=== PATIENT | female | born 1960 | race Caucasian/White ===

== ENCOUNTER → 2016-06-29 | Outpatient (CLI) | payer MEDICARE, OTHER ==
[2016-06-29 11:08] VITALS: BP 165/100; PULSE 120; RESP 15; TEMP 98; BMI 38.2
[2016-06-29 12:57] LABS: CH 28.3; CHCM 32.9; HCT 48.3 % (34.0-46.0); HDW 2.64; HGB 15.7 gm/dL (11.4-16.0); MCH 28.2 pg (25.0-35.0); MCHC 32.6 g/dL (31.0-37.0); MCV 86.4 fL (80.0-100.0); Mean Platelet Volume 7.7; RBC 5.59 m/uL (3.80-5.40); RDW 13.8 % (11.5-15.5)
[2016-06-29 13:06] LABS: INR 1.1 (<1.1); Partial Thromboplastin Time 27.1 sec (22.0-30.0); Prothrombin Time 11.2 sec (9.0-12.0)
[2016-06-29 13:23] LABS: ALT 38 U/L (9-52); AST 15 U/L (14-36); Alkaline Phosphatase 84 U/L (38-126); Anion Gap 11 mmol/L; Blood Urea Nitrogen 7 mg/dL (7-17); Calcium 9.3 mg/dL (8.4-10.2); Carbon Dioxide 30 mmol/L (22-30); Chloride 99 mmol/L (98-107); Cholesterol 102 mg/dL (<200); Glucose 211 mg/dL (74-99); HDL Cholesterol 32 mg/dL (40-60); Iron 43 ug/dL (37-170); Magnesium 1.9 mg/dL (1.6-2.3); Non-African American GFR(MDRD) >60 (>60 ml/min/1.73 sqM); Phosphorous 3.9 mg/dL (2.5-4.5); Sodium 140 mmol/L (137-145); Total Bilirubin 0.6 mg/dL (0.2-1.3); Total Protein 6.9 g/dL (6.3-8.2); Triglycerides 152 mg/dL (<150)
[2016-06-29 13:32] LABS: % Iron Saturation 13.4 % (20-50); Prealbumin 18 mg/dL (18-36); Total Iron Binding Capacity 322 ug/dL (265-497)
[2016-06-29 13:36] LABS: Hemoglobin A1C 9.3 % (4.2-6.1)
[2016-06-29 14:27] LABS: Vitamin B12 945 pg/mL (239-931)
[2016-07-04 16:40] LABS: Selenium 132 mcg/L (63-160)
--- NOTE | 2016-08-17 13:56 | P.PN ---
Progress Note - Text DATE OF SERVICE: 06/29/2016 CHIEF COMPLAINT: Followup sleeve gastrectomy. HISTORY OF PRESENT ILLNESS: Gabbi Pérez is a 56-year-old female status post sleeve gastrectomy over 2 + years ago. She is now tachycardic and has been placed on a pacemaker. Her daughter reports that she has been having vomiting including belly pain. No reports of constipation. She complains of a fair amount of heartburn. Now presents for further evaluation and management. At her height of 6 feet, her ideal body weight is 183 pounds. Her highest weight is 319 pounds. Today she comes weighing 281 pounds. She has only been able to maintain a 30 pound weight loss. Percentage of weight loss is 28%. Body mass index is reduced from 43.3 down to 38.2. She is still 90 pounds overweight. She is now back on medications for diabetes. She has not been able to follow the bariatric plan given her multiple comorbidities. PAST MEDICAL HISTORY: 1. Type 2 diabetes mellitus. 2. Bipolar disorder. 3. Gastric ulcers. 4. Colon polyps. 5. Depression D deficiency. 6. ADHD. 7. Morbid obesity. 8. Stroke, with left hemiparesis. 9. Coronary artery disease. 10. Ocular degeneration. 11. Vitamin D deficiency. 12. Anxiety. 13. Bladder urgency. 14. Personal history of stroke 15. History of heart attack. PAST SURGICAL HISTORY: 1. Sleeve gastrectomy. 2. Upper endoscopy. 3. Colonoscopy. 4. Ventral hernia repair. 5. . 6. Pacemaker placement. MEDICATIONS: 1. Lamictal. 2. Ditropan. 3. Nystatin. 4. Multivitamin. 5. Provigil. 6. Methotrexate. 7. Prinivil. 8. NovoLog insulin. 9. Levemir. 10. Folic acid. 11. Flonase. 12. Florinef. 13. Cymbalta. 14. Plavix. 15. Vitamin D. 16. Lipitor. 17. Eliquis. 18. Ventolin inhaler. 19. Abilify. 20. Xanax. ALLERGIES: 1. ADHESIVE TAPE. 2. ASPIRIN. 3. INVEGA. 4. SULFA. 5. GEODON. SOCIAL HISTORY: Active additional marijuana use. No reports of active alcohol abuse. FAMILY HISTORY: Pertinent for morbid obesity including cervical cancer and genitourinary cancer. REVIEW OF SYSTEMS: CONSTITUTIONAL: [place] body weight of 183 pounds. She has gained 11 pounds since her last evaluation a year ago. Maintained weight loss of only 38 pounds. Percent excess weight loss of 28% beyond almost 3 years. Body mass index reduced from 43.3 down to 38.2. Highest weight of 319 pounds. GASTROINTESTINAL: As above, heartburn. Also reports abdominal pain. HEENT: Has troubles with vision with ocular degeneration. Denies any dysphagia. Denies any troubles with hearing. ENDOCRINE: She has insulin-dependent diabetes; however, moderately improved since her sleeve gastrectomy. No history of thyroid disorder. RESPIRATORY: She reports increased daytime somnolence and is currently undergoing re-evaluation for obstructive sleep apnea. CARDIOVASCULAR: History of hyperlipidemia. History of chest pain with heart attack. NEURO: History of stroke including fibromyalgia and headaches. PSYCH: History of depression including mood disorders and ADHD. MUSCULOSKELETAL: Has osteoarthritis of the lower back or hips. PHYSICAL EXAM: VITAL SIGNS: 98.0, 120, 15, 165/100. ABDOMEN: Tenderness in the epigastrium. No peritoneal signs. GENERAL: Well-developed, pleasant female in no acute distress. HEENT: She wears dark glasses. No troubles with hearing. No nasal drainage. NECK: Supple without lymphadenopathy. CHEST: Unlabored respirations. Equal bilateral excursions. CARDIOVASCULAR: Regular rate and rhythm. MUSCULOSKELETAL: No clubbing, cyanosis. NEURO: No focal or lateralizing signs. PSYCH: Appropriate affect. Alert and oriented to person, place and time. ASSESSMENT: 1. Morbid obesity due to excess calories. 2. Body mass index reduced from 43.3 down to 38.2. 3. Weight loss failure with only 21%, status post sleeve gastrectomy. 4. Status post sleeve gastrectomy. 5. Mood disorder, bipolar disorder. 6. Depression. 7. Anxiety. 8. Osteoarthritis lower back and knees. 9. Hypertriglyceridemia. 10. Dyslipidemia. 11. Vitamin D deficiency. 12. Secondary hyperparathyroidism. 13. Diabetes type 2, poorly controlled. 14. History of recent stroke with left hemiparesis. 15. Poorly controlled insulin-dependent type 2 diabetes. 16. Ocular degeneration. 17. History of arrhythmia with pacemaker placement. 18. Dietary surveillance and counseling. 19. History of pacemaker placement. 20. Tachycardia. 21. Weight gain following weight loss procedure. 22. Epigastric abdominal pain. 23. Vitamin A deficiency. PLAN: 1. Recommend bariatric metabolic panel for further evaluation and management. 2. Also recommend upper endoscopy as many of her medications place her at risk for gastritis including bleeding. 3. Strongly recommend follow up with her associate director qa as she is tachycardic on presentation including hypertensive and poorly controlled cardiovascularly. 4. No additional surgical intervention apart from endoscopy in the interim. 5. Recommend additional imaging with CT of the abdomen and pelvis for further evaluation and management. 6. Recommend vitamin A supplement including iron supplement. Also recommend more aggressive evaluation with bariatric dietitian as well. ADDENDUM: Labs - hemoglobin normal at 15.7, hematocrit elevated at 48.3. Creatinine was low at 0.5. Glucose elevated at 211. Hemoglobin A1c down from 10.3 to 9.3. Percent iron saturation low at 13.4. Triglycerides elevated at 152. HDL low at 32. Vitamin A low at 35. Vitamin B12 elevated at 945.
== END | disposition home or self-care (01) ==
LOC: BARWHC3 09:17
PROVIDERS: ATTEND Surgery Plastic and Reconstructive Surgery
DX: Z48.815 Encounter for surgical aftercare following surgery on the digestive system (principal); E66.01 Morbid (severe) obesity due to excess calories; Z68.41 Body mass index [BMI] 40.0-44.9, adult; Z98.84 Bariatric surgery status; E21.1 Secondary hyperparathyroidism, not elsewhere classified; E89.1 Postprocedural hypoinsulinemia; D50.8 Other iron deficiency anemias; E44.0 Moderate protein-calorie malnutrition; E55.9 Vitamin D deficiency, unspecified; K74.1 Hepatic sclerosis; N19 Unspecified kidney failure; K50.90 Crohn's disease, unspecified, without complications
CPT/HCPCS: 84255; 84134; 84425; 80061; 80053; 82607; 82728; 83036; 82525; 82746; 83540; 83550; 83735; 84100; 84443; 84590; 84630; 85027; 85610; 85730; 82306; 83970; G0463; 99211

== ENCOUNTER 2016-07-07 09:09 | Day surgery (SDC) | payer MEDICARE, OTHER ==
[2016-07-06 09:25] VITALS: BMI 37.1
--- NOTE | 2016-07-07 08:02 | P.GSHP ---
History of Present Illness H&P Date: 07/07/16 CHIEF COMPLAINT: GERD HISTORY OF PRESENT ILLNESS: The patient is a 56-year-old female who presents reports gastroesophageal reflux disease. Upper endoscopy was offered for further evaluation and management. PAST MEDICAL HISTORY: Please see list. PAST SURGICAL HISTORY: Please see list. MEDICATIONS: Please see list. ALLERGIES: Please see list. SOCIAL HISTORY: No illicit drug use FAMILY HISTORY: No reports of Crohn disease or ulcerative colitis. REVIEW OF ORGAN SYSTEMS: CONSTITUTIONAL: No reports of fevers or chills. GI: Denies any blood in stools or constipation. PHYSICAL EXAM: VITAL SIGNS: Stable GENERAL: Well-developed and pleasant in no acute distress. HEENT: No scleral icterus. Extraocular movements grossly intact. Moist buccal mucosa. NECK: Supple without lymphadenopathy. CHEST: Unlabored respirations. Equal bilateral excursions. CARDIOVASCULAR: Regular rate and rhythm. Distal 2+ pulses. ABDOMEN: Soft, nondistended. MUSCULOSKELETAL: No clubbing, cyanosis, or edema. ASSESSMENT: 1. Gastroesophageal reflux disease PLAN: 1. Recommend proceeding with an upper endoscopy Past Medical History Past Medical History: Asthma, Cancer, CVA/TIA, Diabetes Mellitus, Fibromyalgia, GERD/Reflux, Memory Impairment, Musculoskeletal Disorder, Osteoarthritis (OA), Seizure Disorder Additional Past Medical History / Comment(s): back pain, lower extremity edema, diverticulitis, irrit bowel, hemorrhoids, colitis. Cervical ca 1984., lymphadema , neuropathy, iritis. Pt states her Dr thinks she has diab type 1. Stroke 2015 History of Any Multi-Drug Resistant Organisms: None Reported Past Surgical History: Adenoidectomy, Bariatric Surgery, Cholecystectomy, Heart Catheterization, Hysterectomy, Pacemaker, Tonsillectomy Additional Past Surgical History / Comment(s): olonoscopy, carpul tunnel bilateral, sleeve 06/09/13, partial hysterectomy, hemorrhoidectomy, bladder sling , cholecystectomy 2011, right eye replaced lens and removed cataracts, pacemaker 06/2015 Past Anesthesia/Blood Transfusion Reactions: No Reported Reaction Type of Cardiac Device: Permanent Pacemaker Device Placement Date:: 06/2015 Past Psychological History: Anxiety, Bipolar, PTSD Additional Psychological History / Comment(s): Disassociation Smoking Status: Current every day smoker Past Alcohol Use History: Occasional Additional Past Alcohol Use History / Comment(s): smokes 1 1/2 ppd since age 13 Past Drug Use History: Marijuana Additional Drug Use History / Comment(s): Medical Marijuana-INSTRUCTED TO REFRAIN FROM MARIJUANA USE FOR AT LEAST 24 HOURS PRIOR TO PROCEDURE - Past Family History Mother Family Medical History: Unable to Obtain Medications and Allergies Home Medications Medication Instructions Recorded Confirmed Type ALPRAZolam [Xanax] 0.5 mg PO BID PRN 08/07/13 07/06/16 History ARIPiprazole [Abilify] 10 mg PO DAILY 08/07/13 07/06/16 History DULoxetine HCL [Cymbalta] 60 mg PO BID 08/07/13 07/06/16 History lamoTRIgine [LaMICtal Odt] 100 mg PO AC-BRKFST 08/07/13 07/06/16 History Cholecalciferol [Vitamin D3] 1 tab PO DAILY 08/28/13 07/06/16 History Multivitamins, Thera [Multivitamin] 1 tab PO DAILY 08/28/13 07/06/16 History Insulin Detemir [Levemir] 44 unit SQ BID 10/02/13 07/06/16 History Insuln Asp Prt/Insulin Aspart 20 unit SQ TID 10/02/13 07/06/16 History [NovoLOG MIX 70-30 VIAL] Folic Acid 1 tab PO DAILY 10/30/13 07/06/16 History Methotrexate Sodium [Methotrexate] 2.5 mg PO DIRECTED 10/30/13 07/06/16 History Modafinil [Provigil] 400 tab PO DAILY 10/30/13 07/06/16 History Albuterol Inhaler [Ventolin Hfa 1 - 2 puff INHALATION Q6HR PRN 09/29/15 History Inhaler] Atorvastatin [Lipitor] 80 mg PO DAILY 09/29/15 07/06/16 History Clopidogrel [Plavix] 75 mg PO DAILY 09/29/15 07/06/16 History Fludrocortisone [Florinef] 0.2 mg PO DAILY 09/29/15 07/06/16 History Fluticasone Nasal [place] [Flonase 2 spr EA NOSTRIL DAILY 09/29/15 07/06/16 History Nasal [place]] Lisinopril [Prinivil] 10 mg PO DAILY 09/29/15 07/06/16 History Nystatin 100,000 Unit/gm Oint 1 applic TOPICAL BID 09/29/15 07/06/16 History [Mycostatin Oint] Oxybutynin Chloride [Ditropan] 5 mg PO BID 09/29/15 07/06/16 History lamoTRIgine [LaMICtal] 200 mg PO DAILY 09/29/15 07/06/16 History Apixaban [Eliquis] 5 mg PO BID 07/06/16 07/06/16 History Allergies Allergy/AdvReac Type Severity Reaction Status Date / Time adhesive Allergy HIVES Verified 07/06/16 09:18 aspirin Allergy THINS Verified 07/06/16 09:18 BLOOD TOO MUCH paliperidone [From Invega] Allergy Unknown Verified 06/29/16 11:08 Sulfa (Sulfonamide Allergy Unknown Verified 06/29/16 11:08 Antibiotics) ziprasidone HCl [From Geodon] Allergy SUICIDAL Verified 07/06/16 09:18 TENDENCY ziprasidone mesylate Allergy SUICIDAL Verified 07/06/16 09:18 [From Geodon] TENDENCY
[2016-07-07 09:38] VITALS: TEMP 98
[2016-07-07] MEDS: LACTATED RINGERS 1,000 ML IV SCH ×2 (09:46→09:48)
[2016-07-07] MEDS ORDERED: LIDOCAINE 1% 20 ML VIAL (10MG/ML) FOR IV START INTRADERMA ONE ×2 (09:46→09:49)
[2016-07-07] MEDS ORDERED: PROPOFOL 10 MG/ML 20 ML VIAL IV ONE (09:48)
[2016-07-07] MEDS ORDERED: LIDOCAINE 1% INJ 10MG/ML (20 ML MDV) ONE (09:48)
[2016-07-07 09:51] LABS: Glucose,Whole Blood 206 mg/dL (75-99)
--- NOTE | 2016-07-07 10:00 | P.PCN ---
Date of Procedure: 07/07/16 Preoperative Diagnosis: Postoperative Diagnosis: Procedure(s) Performed: Implants: Indications for Procedure: Operative Findings: Description of Procedure: PREOPERATIVE DIAGNOSIS: Status post sleeve gastrectomy. Gastroesophageal reflux disease. Epigastric abdominal pain. POSTOPERATIVE DIAGNOSIS: Status post sleeve gastrectomy. Gastroesophageal reflux disease. Epigastric abdominal pain. Erosive esophagitis, chronic. Diaphragmatic hiatal hernia without obstruction. Chronic superficial gastritis. OPERATION: Esophagogastroduodenoscopy with cold forceps biopsies along the antrum. SURGEON: Lola Villatoro MD ANESTHESIA: MAC. INDICATIONS: The patient is a 56-year-old female who presents with a history of sleeve gastrectomy with abdominal pain. She is over 2 years out from her bariatric procedure. Benefits and risks of the procedure were described. Informed consent was obtained. DESCRIPTION: The patient was brought into the endoscopy suite and laid in the left lateral decubitus position. An Olympus gastroscope was passed along the posterior oropharynx down to the distal esophagus where the squamocolumnar junction was at 42 centimeters from the incisors remarkable for chronic erosive esophagitis, LA grade A without ulceration. The stomach was entered where she had a 1-cm hiatal hernia with a diaphragmatic hiatus found at 43 cm. The sleeve reservoir was unremarkable. No gastric stenosis identified. Chronic gastritis albeit mild was found along the antrum with cold biopsies obtained. The first through third portion of the duodenum was examined and unremarkable. The stomach was desufflated. The patient tolerated the procedure well. FINDINGS: No acute ulceration found along her sleeve. No corkscrewing sleeve gastrectomy. Squamocolumnar junction at 42 cm from the incisors. Diaphragmatic hiatus at 43 cm. Hiatal hernia 1 cm, fixed. LA grade A erosive esophagitis. No active duodenitis. Chronic gastritis. RECOMMENDATIONS: Upper endoscopy as needed. Continue with current therapy. Plan - Discharge Summary Discharge Medication List ALPRAZolam [Xanax] 0.5 mg PO BID PRN 08/07/13 [History] ARIPiprazole [Abilify] 10 mg PO DAILY 08/07/13 [History] DULoxetine HCL [Cymbalta] 60 mg PO BID 08/07/13 [History] lamoTRIgine [LaMICtal Odt] 100 mg PO AC-BRKFST 08/07/13 [History] Cholecalciferol [Vitamin D3] 1 tab PO DAILY 08/28/13 [History] Multivitamins, Thera [Multivitamin] 1 tab PO DAILY 08/28/13 [History] Insulin Detemir [Levemir] 44 unit SQ BID 10/02/13 [History] Insuln Asp Prt/Insulin Aspart [NovoLOG MIX 70-30 VIAL] 20 unit SQ TID 10/02/13 [ History] Folic Acid 1 tab PO DAILY 10/30/13 [History] Methotrexate Sodium [Methotrexate] 2.5 mg PO DIRECTED 10/30/13 [History] Modafinil [Provigil] 400 tab PO DAILY 10/30/13 [History] Albuterol Inhaler [Ventolin Hfa Inhaler] 1 - 2 puff INHALATION Q6HR PRN [History] Atorvastatin [Lipitor] 80 mg PO DAILY 09/29/15 [History] Clopidogrel [Plavix] 75 mg PO DAILY 09/29/15 [History] Fludrocortisone [Florinef] 0.2 mg PO DAILY 09/29/15 [History] Fluticasone Nasal [place] [Flonase Nasal [place]] 2 spr EA NOSTRIL DAILY 09/29/15 [ History] Lisinopril [Prinivil] 10 mg PO DAILY 09/29/15 [History] Nystatin 100,000 Unit/gm Oint [Mycostatin Oint] 1 applic TOPICAL BID 09/29/15 [ History] Oxybutynin Chloride [Ditropan] 5 mg PO BID 09/29/15 [History] lamoTRIgine [LaMICtal] 200 mg PO DAILY 09/29/15 [History] Apixaban [Eliquis] 5 mg PO BID 07/06/16 [History] Follow up Appointment(s)/Referral(s): Lola Villatoro MD [STAFF PHYSICIAN] - 07/13/16 ([place]) Patient Instructions/Handouts: Gastritis (GEN) Discharge Disposition: HOME SELF-CARE
[2016-07-07 10:21] VITALS: BP 152/93; PULSE 84; RESP 18
[2016-07-07 10:21] LABS: Glucose,Whole Blood 187 mg/dL (75-99)
== END 2016-07-07 10:50 | disposition home or self-care (01) ==
LOC: ORWHC2ENDO 09:09
PROVIDERS: ATTEND Surgery Plastic and Reconstructive Surgery
DX: K21.0 Gastro-esophageal reflux disease with esophagitis (principal); K29.30 Chronic superficial gastritis without bleeding; K44.9 Diaphragmatic hernia without obstruction or gangrene; Z98.84 Bariatric surgery status; J45.909 Unspecified asthma, uncomplicated; E11.9 Type 2 diabetes mellitus without complications; M79.7 Fibromyalgia; R41.3 Other amnesia; M19.90 Unspecified osteoarthritis, unspecified site; G40.909 Epilepsy, unspecified, not intractable, without status epilepticus; Z95.0 Presence of cardiac pacemaker; F41.9 Anxiety disorder, unspecified; F31.9 Bipolar disorder, unspecified; F43.10 Post-traumatic stress disorder, unspecified; I10 Essential (primary) hypertension; F17.200 Nicotine dependence, unspecified, uncomplicated; Z86.73 Personal history of transient ischemic attack (TIA), and cerebral infarction without residual deficits; Z79.01 Long term (current) use of anticoagulants; Z79.02 Long term (current) use of antithrombotics/antiplatelets; Z79.4 Long term (current) use of insulin; Z79.52 Long term (current) use of systemic steroids; Z79.899 Other long term (current) drug therapy; Z88.6 Allergy status to analgesic agent; Z88.2 Allergy status to sulfonamides; Z88.8 Allergy status to other drugs, medicaments and biological substances; Z91.048 Other nonmedicinal substance allergy status
CPT/HCPCS: 88305; 88342; 43239; J2001; J2704

== ENCOUNTER → 2017-02-15 | Outpatient (CLI) | payer MEDICARE, OTHER ==
[2017-02-15 16:18] LABS: CH 28.2; CHCM 32.9; HCT 44.4 % (34.0-46.0); HGB 14.1 gm/dL (11.4-16.0); MCH 27.4 pg (25.0-35.0); MCHC 31.8 g/dL (31.0-37.0); MCV 86.1 fL (80.0-100.0); Mean Platelet Volume 7.8; RBC 5.16 m/uL (3.80-5.40); RDW 13.9 % (11.5-15.5); WBC 9.2 k/uL (3.8-10.6)
[2017-02-15 16:50] LABS: ALT 41 U/L (9-52); AST 21 U/L (14-36); Alkaline Phosphatase 81 U/L (38-126); Anion Gap 5 mmol/L; Blood Urea Nitrogen 12 mg/dL (7-17); Calcium 9.2 mg/dL (8.4-10.2); Carbon Dioxide 30 mmol/L (22-30); Chloride 105 mmol/L (98-107); Cholesterol 73 mg/dL (<200); Glucose 110 mg/dL (74-99); HDL Cholesterol 30 mg/dL (40-60); INR 1.1 (<1.2); Magnesium 2.3 mg/dL (1.6-2.3); Non-African American GFR(MDRD) >60 (>60 ml/min/1.73 sqM); Partial Thromboplastin Time 25.8 sec (22.0-30.0); Phosphorus 3.5 mg/dL (2.5-4.5); Potassium 3.9 mmol/L (3.5-5.1); Prothrombin Time 10.7 sec (9.0-12.0); Sodium 140 mmol/L (137-145); Total Bilirubin 0.2 mg/dL (0.2-1.3); Total Protein 6.4 g/dL (6.3-8.2)
[2017-02-16 00:59] LABS: Iron Saturation 12.81 (12.00-45.00)
[2017-03-06 16:42] LABS: Selenium 123 mcg/L (63-160)
== END | disposition home or self-care (01) ==
LOC: LABWHC1 15:38
PROVIDERS: ATTEND Surgery Plastic and Reconstructive Surgery
DX: E66.01 Morbid (severe) obesity due to excess calories (principal); E21.1 Secondary hyperparathyroidism, not elsewhere classified; E89.1 Postprocedural hypoinsulinemia; D50.8 Other iron deficiency anemias; K90.89 Other intestinal malabsorption; E55.9 Vitamin D deficiency, unspecified; K76.9 Liver disease, unspecified; T56.894A Toxic effect of other metals, undetermined, initial encounter
CPT/HCPCS: 36415; 80053; 80061; 82306; 82525; 82607; 82728; 82746; 83036; 83540; 83550; 83735; 83970; 84100; 84134; 84255; 84425; 84443; 84590; 84630; 85027; 85610; 85730

== ENCOUNTER → 2017-08-01 | Day surgery (SDC) | payer MEDICARE, OTHER ==
[2017-07-30 09:19] VITALS: BMI 33.9
[~2017-08-01] MED LIST: LACTATED RINGERS 1,000 ML IV SCH; LIDOCAINE 1% 20 ML VIAL (10MG/ML) FOR IV START INTRADERMA PRN; MIDAZOLAM 2 MG/2 ML VIAL IV PRN; PROPOFOL 10 MG/ML 20 ML VIAL IV ONE
--- NOTE | 2017-08-01 04:50 | P.GSHP ---
History of Present Illness H&P Date: 08/01/17 CHIEF COMPLAINT: GERD and colon screen HISTORY OF PRESENT ILLNESS: The patient is a 57-year-old female who presents with gastroesophageal reflux disease and need for colon screen. Upper and lower endoscopy were offered for further evaluation and management. PAST MEDICAL HISTORY: Please see list. PAST SURGICAL HISTORY: Please see list. MEDICATIONS: Please see list. ALLERGIES: Please see list. SOCIAL HISTORY: No illicit drug use FAMILY HISTORY: No reports of Crohn disease or ulcerative colitis. REVIEW OF ORGAN SYSTEMS: CONSTITUTIONAL: No reports of fevers or chills. GI: Denies any blood in stools or constipation. PHYSICAL EXAM: VITAL SIGNS: Stable GENERAL: Well-developed pleasant in no acute distress. HEENT: No scleral icterus. Extraocular movements grossly intact. Moist buccal mucosa. NECK: Supple without lymphadenopathy. CHEST: Unlabored respirations. Equal bilateral excursions. CARDIOVASCULAR: Regular rate and rhythm. Distal 2+ pulses. ABDOMEN: Soft, nondistended. MUSCULOSKELETAL: No clubbing, cyanosis, or edema. ASSESSMENT: 1. Gastroesophageal reflux disease 2. Colon screen. PLAN: 1. Recommend proceeding with an upper and lower endoscopy Past Medical History Past Medical History: Cancer, COPD, CVA/TIA, Diabetes Mellitus, Fibromyalgia, GERD/Reflux, Memory Impairment, Musculoskeletal Disorder, Osteoarthritis (OA), Seizure Disorder Additional Past Medical History / Comment(s): HX OF COLON POLYPS, back pain, SCIATICA LEFT SIDE, lower extremity edema, diverticulitis, IBS, hemorrhoids, colitis. Cervical ca 1984, lymphadema, neuropathy, iritis. Stroke 06/23/2015, HX OF SEIZURES, LAST ONE APPROX 2015. STATES ROSE ANKLE PAIN History of Any Multi-Drug Resistant Organisms: None Reported Past Surgical History: Adenoidectomy, Bariatric Surgery, Cholecystectomy, Heart Catheterization, Hysterectomy, Pacemaker, Tonsillectomy Additional Past Surgical History / Comment(s): carpal tunnel bilateral, sleeve , hemorrhoidectomy, bladder sling, rose eye cataracts, pacemaker 06/2015 Past Anesthesia/Blood Transfusion Reactions: No Reported Reaction Type of Cardiac Device: Permanent Pacemaker Device Placement Date:: 06/2015 Smoking Status: Current every day smoker - Past Family History Mother Family Medical History: Unable to Obtain Medications and Allergies Home Medications Medication Instructions Recorded Confirmed Type ARIPiprazole [Abilify] 15 mg PO DAILY 08/07/13 07/30/17 History Multivitamins, Thera [Multivitamin] 1 tab PO DAILY 08/28/13 07/30/17 History Insulin Detemir [Levemir] 50 unit SQ BID 10/02/13 07/30/17 History Albuterol Inhaler [Ventolin Hfa 1 - 2 puff INHALATION Q4HR PRN 09/29/15 History Inhaler] Atorvastatin [Lipitor] 80 mg PO HS 09/29/15 07/30/17 History Clopidogrel [Plavix] 75 mg PO HS 09/29/15 07/30/17 History Fludrocortisone [Florinef] 0.2 mg PO QAM 09/29/15 07/30/17 History Lisinopril [Prinivil] 10 mg PO DAILY 09/29/15 07/30/17 History Oxybutynin Chloride [Ditropan] 5 mg PO BID 09/29/15 07/30/17 History Apixaban [Eliquis] 5 mg PO BID 07/06/16 07/30/17 History Fluticasone/Salmeterol [Advair 1 inhalation PO BID 02/20/17 07/30/17 History 250-50 Diskus] HYDROcodone/APAP 5-325MG [[place] 1 tab PO TID PRN 02/20/17 07/30/17 History 5-325] Insulin Aspart [NovoLOG Flexpen] 20 units SQ TID-W/MEALS 02/20/17 07/30/17 History Metoprolol Tartrate [Lopressor] 50 mg PO BID 02/20/17 07/30/17 History Midodrine HCl [ProAmatine] 2.5 mg PO TID 02/20/17 07/30/17 History Ranitidine HCl [Zantac] 150 mg PO BID 02/20/17 07/30/17 History lamoTRIgine [LaMICtal] 100 mg PO TID 02/20/17 07/30/17 History Calcium Carbonate [Calcium] 600 mg PO DAILY 07/30/17 07/30/17 History Cholecalciferol [Vitamin D3] 1,000 unit PO DAILY 07/30/17 07/30/17 History Cyclobenzaprine [Flexeril] 10 mg PO BID 07/30/17 07/30/17 History DULoxetine HCL [Cymbalta] 60 mg PO DAILY 07/30/17 07/30/17 History Ferrous Sulfate [Feosol] 325 mg PO DAILY 07/30/17 07/30/17 History Fluticasone Nasal [place] [Flonase 2 spr EA NOSTRIL DAILY 07/30/17 07/30/17 History Nasal [place]] [place]-3 Fatty Acids/Fish Oil [Fish 1 each PO DAILY 07/30/17 07/30/17 History Oil 1,000 mg Softgel] Vitamin A 8,000 unit PO DAILY 07/30/17 07/30/17 History Allergies Allergy/AdvReac Type Severity Reaction Status Date / Time adhesive Allergy HIVES/blist Verified 07/30/17 09:11 ers aspirin Allergy THINS Verified 07/30/17 09:11 BLOOD TOO MUCH paliperidone [From Invega] Allergy Unknown Verified 07/30/17 09:11 Sulfa (Sulfonamide Allergy depresiion,suicidal Verified 07/30/17 09:11 Antibiotics) tendency ziprasidone HCl [From Geodon] Allergy SUICIDAL Verified 07/30/17 09:11 TENDENCY ziprasidone mesylate Allergy SUICIDAL Verified 07/30/17 09:11 [From Geodon] TENDENCY BANDAIDS Allergy Hives/BLIST Uncoded 07/30/17 09:11 ERS
[2017-08-01 09:31] VITALS: RESP 16; TEMP 98.4
[2017-08-01 09:31] LABS: Glucose,Whole Blood 178 mg/dL (75-99)
--- NOTE | 2017-08-01 10:19 | P.PCN ---
Date of Procedure: 08/01/17 Description of Procedure: PREOPERATIVE DIAGNOSIS: Status post sleeve gastrectomy. Gastroesophageal reflux disease. Epigastric abdominal pain. POSTOPERATIVE DIAGNOSIS: Status post sleeve gastrectomy. Gastroesophageal reflux disease. Epigastric abdominal pain. Acute superficial gastritis with recent bleeding OPERATION: Esophagogastroduodenoscopy with cold forceps biopsies along the antrum. SURGEON: Lola Villatoro MD ANESTHESIA: MAC. INDICATIONS: The patient is a 57-year-old female who presents with a history of sleeve gastrectomy with abdominal pain. Benefits and risks of the procedure were described. Informed consent was obtained. DESCRIPTION: The patient was brought into the endoscopy suite and laid in the left lateral decubitus position. An Olympus gastroscope was passed along the posterior oropharynx down to the distal esophagus where the squamocolumnar junction was at 45 centimeters from the incisors and unremarkable. The stomach was diaphragmatic hiatus found at 45 cm. The sleeve reservoir allowed easy retroflexion of the scope to view the lower esophageal valve. Acute superficial gastritis was found throughout her stomach including along the antrum with cold biopsies obtained. No distortion of her sleeve gastrectomy or corkscrewing was found. The first through third portion of the duodenum was examined and unremarkable. The scope again had easily retroflexed along the antrum. The stomach was desufflated. The patient tolerated the procedure well. FINDINGS: No acute ulceration found along her sleeve. No corkscrewing sleeve gastrectomy. Squamocolumnar junction at 45 cm from the incisors. Diaphragmatic hiatus at 45 cm. Moderate large gastric reservoir with prior history of sleeve gastrectomy allowing easy retroflexion of the gastroscope to view the lower esophageal valve. No LA grade A erosive esophagitis. No active duodenitis. Acute superficial gastritis with recent bleeding. RECOMMENDATIONS: Upper endoscopy as needed. Continue with current therapy.
--- NOTE | 2017-08-01 10:22 | P.PCN ---
Date of Procedure: 08/01/17 Description of Procedure: PREOPERATIVE DIAGNOSIS: Personal history of colon polyps. Colonoscopy screening. POSTOPERATIVE DIAGNOSIS: Colonoscopy screening. Personal history of colon polyps. Multiple tubular adenomas throughout the colon, ascending colon External hemorrhoids, grade 2. OPERATION: Colonoscopy to the ileocecal valve Colonoscopy with multiple hot snare polypectomy SURGEON: Lola Villatoro MD. ANESTHESIA: MAC. INDICATIONS: The patient is a 57-year-old female who presents for colonoscopy screening. Last colonoscopy was less than 5 years. Benefits and risks were described and informed consent was obtained. DESCRIPTION OF PROCEDURE: The patient had undergone Gatorade, MiraLAX and Dulcolax prep. She had been brought into the operating room and laid in the left lateral decubitus position. After adequate intravenous sedation, the rectum was examined with 2% lidocaine jelly. External hemorrhoids were encountered. The rectal tone was within normal limits. No lesions were palpated in the rectal vault. An Olympus colonoscope was advanced until the ileocecal valve was clearly viewed. The abdominal wall pressure which required to view the ascending colon. The prep was fair with visualization of the mucosal folds. The scope was removed with visualization of each mucosal fold. Scattered diverticulosis was encountered. Multiple colonic polyps were snare polypectomy. No evidence of focal colitis was found. Retroflexion of the scope demonstrated grade 1 internal hemorrhoids without active bleeding or inflammation. The colon was desufflated. The patient had tolerated the procedure well. Withdrawal time was over 6 minutes. FINDINGS: Internal hemorrhoids, grade 1 External hemorrhoids, grade 2. No arteriovenous malformations. Scattered diverticulosis with sigmoid diverticulosis Removal of 3 polyps from the proximal, mid transverse colon and descending colon : - Snare polypectomy x 3 at ascending colon, 5 to 8 mm tubulovillous adenoma polyps. No focal colitis. RECOMMENDATIONS: Given severity of tubular adenomas, recommend repeat colonoscopy 2 years, 2019 Plan - Discharge Summary New Discharge Prescriptions: No Action ARIPiprazole [Abilify] 15 mg PO DAILY Multivitamins, Thera [Multivitamin] 1 tab PO DAILY Insulin Detemir [Levemir] 50 unit SQ BID Albuterol Inhaler [Ventolin Hfa Inhaler] 1 - 2 puff INHALATION Q4HR PRN PRN Reason: Shortness Of Breath Oxybutynin Chloride [Ditropan] 5 mg PO BID Lisinopril [Prinivil] 10 mg PO DAILY Clopidogrel [Plavix] 75 mg PO HS Fludrocortisone [Florinef] 0.2 mg PO QAM Atorvastatin [Lipitor] 80 mg PO HS Apixaban [Eliquis] 5 mg PO BID HYDROcodone/APAP 5-325MG [[place] 5-325] 1 tab PO TID PRN PRN Reason: Pain Fluticasone/Salmeterol [Advair 250-50 Diskus] 1 inhalation PO BID Ranitidine HCl [Zantac] 150 mg PO BID Insulin Aspart [NovoLOG Flexpen] 20 units SQ TID-W/MEALS Midodrine HCl [ProAmatine] 2.5 mg PO TID Metoprolol Tartrate [Lopressor] 50 mg PO BID lamoTRIgine [LaMICtal] 100 mg PO TID Ferrous Sulfate [Feosol] 325 mg PO DAILY Fluticasone Nasal [place] [Flonase Nasal [place]] 2 spr EA NOSTRIL DAILY Cholecalciferol [Vitamin D3] 1,000 unit PO DAILY DULoxetine HCL [Cymbalta] 60 mg PO DAILY Vitamin A 8,000 unit PO DAILY [place]-3 Fatty Acids/Fish Oil [Fish Oil 1,000 mg Softgel] 1 each PO DAILY Calcium Carbonate [Calcium] 600 mg PO DAILY Cyclobenzaprine [Flexeril] 10 mg PO BID Discharge Medication List ARIPiprazole [Abilify] 15 mg PO DAILY 08/07/13 [History] Multivitamins, Thera [Multivitamin] 1 tab PO DAILY 08/28/13 [History] Insulin Detemir [Levemir] 50 unit SQ BID 10/02/13 [History] Albuterol Inhaler [Ventolin Hfa Inhaler] 1 - 2 puff INHALATION Q4HR PRN [History] Atorvastatin [Lipitor] 80 mg PO HS 09/29/15 [History] Clopidogrel [Plavix] 75 mg PO HS 09/29/15 [History] Fludrocortisone [Florinef] 0.2 mg PO QAM 09/29/15 [History] Lisinopril [Prinivil] 10 mg PO DAILY 09/29/15 [History] Oxybutynin Chloride [Ditropan] 5 mg PO BID 09/29/15 [History] Apixaban [Eliquis] 5 mg PO BID 07/06/16 [History] Fluticasone/Salmeterol [Advair 250-50 Diskus] 1 inhalation PO BID 02/20/17 [ History] HYDROcodone/APAP 5-325MG [[place] 5-325] 1 tab PO TID PRN 02/20/17 [History] Insulin Aspart [NovoLOG Flexpen] 20 units SQ TID-W/MEALS 02/20/17 [History] Metoprolol Tartrate [Lopressor] 50 mg PO BID 02/20/17 [History] Midodrine HCl [ProAmatine] 2.5 mg PO TID 02/20/17 [History] Ranitidine HCl [Zantac] 150 mg PO BID 02/20/17 [History] lamoTRIgine [LaMICtal] 100 mg PO TID 02/20/17 [History] Calcium Carbonate [Calcium] 600 mg PO DAILY 07/30/17 [History] Cholecalciferol [Vitamin D3] 1,000 unit PO DAILY 07/30/17 [History] Cyclobenzaprine [Flexeril] 10 mg PO BID 07/30/17 [History] DULoxetine HCL [Cymbalta] 60 mg PO DAILY 07/30/17 [History] Ferrous Sulfate [Feosol] 325 mg PO DAILY 07/30/17 [History] Fluticasone Nasal [place] [Flonase Nasal [place]] 2 spr EA NOSTRIL DAILY 07/30/17 [ History] [place]-3 Fatty Acids/Fish Oil [Fish Oil 1,000 mg Softgel] 1 each PO DAILY [History] Vitamin A 8,000 unit PO DAILY 07/30/17 [History]
[2017-08-01 10:44] VITALS: BP 139/86; PULSE 62
== END | disposition home or self-care (01) ==
LOC: ORWHC2ENDO 07:40
PROVIDERS: ATTEND Surgery Plastic and Reconstructive Surgery
DX: Z12.11 Encounter for screening for malignant neoplasm of colon (principal); D12.2 Benign neoplasm of ascending colon; K63.5 Polyp of colon; K29.01 Acute gastritis with bleeding; Z98.84 Bariatric surgery status; K31.9 Disease of stomach and duodenum, unspecified; K44.9 Diaphragmatic hernia without obstruction or gangrene; K57.30 Diverticulosis of large intestine without perforation or abscess without bleeding; K64.0 First degree hemorrhoids; K64.1 Second degree hemorrhoids; Z86.010 Personal history of colon polyps; J44.9 Chronic obstructive pulmonary disease, unspecified; Z86.73 Personal history of transient ischemic attack (TIA), and cerebral infarction without residual deficits; E11.9 Type 2 diabetes mellitus without complications; Z79.4 Long term (current) use of insulin; F17.200 Nicotine dependence, unspecified, uncomplicated; M79.7 Fibromyalgia; R41.3 Other amnesia; K21.9 Gastro-esophageal reflux disease without esophagitis; M19.90 Unspecified osteoarthritis, unspecified site; G40.909 Epilepsy, unspecified, not intractable, without status epilepticus; Z79.01 Long term (current) use of anticoagulants; Z79.02 Long term (current) use of antithrombotics/antiplatelets; Z79.51 Long term (current) use of inhaled steroids; Z79.52 Long term (current) use of systemic steroids; Z79.899 Other long term (current) drug therapy; Z88.6 Allergy status to analgesic agent; Z88.2 Allergy status to sulfonamides; Z88.8 Allergy status to other drugs, medicaments and biological substances; Z91.09 Other allergy status, other than to drugs and biological substances
CPT/HCPCS: 88305; 45385; 43239; J2704

== ENCOUNTER → 2018-01-22 | Outpatient (CLI) | payer MEDICARE, OTHER ==
[2018-01-22 11:56] LABS: INR 1.1 (<1.2); Partial Thromboplastin Time 24.5 sec (22.0-30.0); Prothrombin Time 10.6 sec (9.0-12.0)
[2018-01-22 12:11] LABS: HCT 46.7 % (34.0-46.0); HGB 15.9 gm/dL (11.4-16.0); MCH 29.3 pg (25.0-35.0); MCHC 34.1 g/dL (31.0-37.0); MCV 85.9 fL (80.0-100.0); Mean Platelet Volume 8.8; Platelet Count 149 k/uL (150-450); RBC 5.44 m/uL (3.80-5.40); RDW 13.9 % (11.5-15.5); WBC 9.1 k/uL (3.8-10.6)
[2018-01-22 16:58] LABS: Iron Saturation 19.26 (12.00-45.00)
[2018-01-22 17:02] LABS: Albumin 4.2 g/dL (3.80-4.90); Albumin/Globulin Ratio 2.47 (1.20-2.10); Calcium 8.8 mg/dL (8.7-10.3); Globulin 1.7 g/dL (2.1-3.7); LDL Cholesterol,Calculated 51.8 mg/dL (0.0-131.0); Magnesium 1.7 mg/dL (1.5-2.4); Total Bilirubin 0.4 mg/dL (0.3-1.2); Total Protein 5.9 g/dL (6.2-8.2); VLDL Calculation 18.2 mg/dL (5.00-40.00)
[2018-01-22 17:07] LABS: Vitamin D 25 Hydroxy 39.3 ng/mL (30.0-100.0)
[2018-01-22 17:27] LABS: Folate, Serum >24.0 ng/mL
[2018-01-22 20:48] LABS: Hemoglobin A1C 10.4 % (4.0-6.0)
[2018-01-23 13:31] LABS: Zinc, Serum 78 ug/dL (60-130)
[2018-01-23 14:45] LABS: Vitamin A 43 ug/dL (38-106)
[2018-01-24 07:40] LABS: Vitamin B1 99 ug/L (38-122)
[2018-01-24 18:57] LABS: Selenium 126 mcg/L (63-160)
== END | disposition home or self-care (01) ==
LOC: LABWHC1 10:19
PROVIDERS: ATTEND Surgery Plastic and Reconstructive Surgery
DX: E21.1 Secondary hyperparathyroidism, not elsewhere classified (principal); D50.8 Other iron deficiency anemias; K90.89 Other intestinal malabsorption; E44.0 Moderate protein-calorie malnutrition; E55.9 Vitamin D deficiency, unspecified; K74.1 Hepatic sclerosis; T56.894A Toxic effect of other metals, undetermined, initial encounter; K90.9 Intestinal malabsorption, unspecified
CPT/HCPCS: 36415; 80053; 80061; 82306; 82525; 82607; 82728; 82746; 83036; 83540; 83550; 83735; 83970; 84100; 84134; 84255; 84425; 84443; 84590; 84630; 85027; 85610; 85730

== ENCOUNTER → 2018-06-26 | Outpatient (CLI) | payer MEDICARE, OTHER ==
--- NOTE | 2018-06-26 17:11 | P.PN ---
Subjective Progress Note Date: 06/26/18 DATE OF SERVICE: 06/26/2018 CHIEF COMPLAINT: Followup sleeve gastrectomy. HISTORY OF PRESENT ILLNESS: Gabbi Pérez is a 58-year-old female status post sleeve gastrectomy, May 2013. She is 5 years out. She is more awake and alert as she is taking less medications. She has gone down from 394 pounds her highest. She was 338 pounds prior to her surgery. She is down to 241 pounds. She reports epigastric pain. Her pain is worse after eating. She is on multiple antacids. She reports chronic pain from her medication. She is on omeprazole, zantac, and carafate for gastroesophageal reflux disease. She reports gas bloat. At her height of 6 feet, her ideal body weight is 183 pounds. Her highest weight lifetime was 394 pounds. Today she comes weighing 240 pounds from 281 pounds, 2 years ago. She has lost 41 pounds in 2 years. Percentage of weight loss is 73 %, lifetime. Body mass index is reduced from 53.5 down to 32.7. She is 57 pounds overweight. PAST MEDICAL HISTORY: 1. Type 2 diabetes mellitus. 2. Bipolar disorder. 3. Gastric ulcers. 4. Colon polyps. 5. Depression D deficiency. 6. ADHD. 7. Morbid obesity due to excess calories, BMI 53.5, highest 8. Stroke, with left hemiparesis. 9. Coronary artery disease. 10. Ocular degeneration. 11. Vitamin D deficiency. 12. Anxiety. 13. Bladder urgency. 14. Personal history of stroke 15. History of heart attack. PAST SURGICAL HISTORY: 1. Sleeve gastrectomy. 2. Upper endoscopy. 3. Colonoscopy. 4. Ventral hernia repair. 5. . 6. Pacemaker placement. MEDICATIONS: Home Medications Medication Instructions Recorded Confirmed ARIPiprazole [Abilify] 15 mg PO DAILY 08/07/13 01/29/18 Multivitamins, Thera [Multivitamin] 1 tab PO DAILY 08/28/13 01/29/18 Insulin Detemir (Levemir) [Levemir] 60 unit SQ BID 10/02/13 01/29/18 Albuterol Inhaler [Ventolin Hfa 1 - 2 puff INHALATION Q4HR PRN 09/29/15 01/29/18 Inhaler] Atorvastatin [Lipitor] 80 mg PO HS 09/29/15 01/29/18 Clopidogrel [Plavix] 75 mg PO HS 09/29/15 01/29/18 Fludrocortisone [Florinef] 0.2 mg PO QAM 09/29/15 01/29/18 Lisinopril [Prinivil] 10 mg PO DAILY 09/29/15 01/29/18 Oxybutynin Chloride [Ditropan] 5 mg PO BID 09/29/15 01/29/18 Apixaban [Eliquis] 5 mg PO BID 07/06/16 01/29/18 Fluticasone/Salmeterol [Advair 1 inhalation PO BID 02/20/17 01/29/18 250-50 Diskus] HYDROcodone/APAP 5-325MG [[place] 1 tab PO TID PRN 02/20/17 01/29/18 5-325] Insulin Aspart [NovoLOG Flexpen] 24 units SQ TID-W/MEALS 02/20/17 01/29/18 Metoprolol Tartrate [Lopressor] 50 mg PO BID 02/20/17 01/29/18 Midodrine HCl [ProAmatine] 2.5 mg PO TID 02/20/17 01/29/18 Ranitidine HCl [Zantac] 150 mg PO BID 02/20/17 01/29/18 lamoTRIgine [LaMICtal] 100 mg PO TID 02/20/17 01/29/18 Calcium Carbonate [Calcium] 600 mg PO DAILY 07/30/17 01/29/18 Cholecalciferol [Vitamin D3] 1,000 unit PO DAILY 07/30/17 01/29/18 Cyclobenzaprine [Flexeril] 10 mg PO BID 07/30/17 01/29/18 DULoxetine HCL [Cymbalta] 60 mg PO DAILY 07/30/17 01/29/18 Ferrous Sulfate [Feosol] 325 mg PO DAILY 07/30/17 01/29/18 Fluticasone Nasal [place] [Flonase 2 spr EA NOSTRIL DAILY 07/30/17 01/29/18 Nasal [place]] [place]-3 Fatty Acids/Fish Oil [Fish 1 each PO DAILY 07/30/17 01/29/18 Oil 1,000 mg Softgel] Vitamin A 8,000 unit PO DAILY 07/30/17 01/29/18 Previous Rx's Medication Instructions Recorded Ranitidine HCl [Zantac] 150 mg PO BID #30 tab 08/01/17 ALLERGIES: 1. ADHESIVE TAPE. 2. ASPIRIN. 3. INVEGA. 4. SULFA. 5. GEODON. SOCIAL HISTORY: Active additional marijuana use. No reports of active alcohol abuse. FAMILY HISTORY: Pertinent for morbid obesity including cervical cancer and genitourinary cancer. REVIEW OF SYSTEMS: CONSTITUTIONAL: At her height of 6 feet, her ideal body weight is 183 pounds. Her highest weight lifetime was 394 pounds. Today she comes weighing 240 pounds from 281 pounds, 2 years ago. She has lost 41 pounds in 2 years. Percentage of weight loss is 73 %, lifetime. Body mass index is reduced from 53.5 down to 32.7. She is 57 pounds overweight. GASTROINTESTINAL: As above, heartburn. Also reports abdominal pain. HEENT: Has troubles with vision with macular degeneration. Denies any dysphagia. Denies any troubles with hearing. ENDOCRINE: She has insulin-dependent diabetes; however, moderately improved since her sleeve gastrectomy. No history of thyroid disorder. RESPIRATORY: She reports increased daytime somnolence and has CPAP machine. CARDIOVASCULAR: History of hyperlipidemia. History of chest pain with heart attack. NEURO: History of stroke including fibromyalgia and headaches. PSYCH: History of depression including mood disorders and ADHD. MUSCULOSKELETAL: Has osteoarthritis of the lower back or hips. SKIN: Has rash. Past skin cancer. PHYSICAL EXAM: VITAL SIGNS: Height 6 ft. Weight 240 pounds. BMI 32.7 Vital Signs Temp 98.1 F 06/26/18 17:22 Pulse 73 06/26/18 17:22 Resp BP 133/88 06/26/18 17:22 Pulse Ox GENERAL: Well developed and in no acute distress. Pleasant. HEENT: No sclera icterus. Extraocular movements grossly intact. Moist buccal mucosa. Head is atraumatic, normocephalic. Hears conversational speech. No nasal drainage. NECK: Supple without lymphadenopathy. No JV distention. CHEST: Non-labored respirations and equal bilateral excursions. CARDIOVASCULAR: Regular rate and rhythm. Palpable 2+ radial pulses. ABDOMEN: Soft, tender at epigastrium. Nondistended. MUSCULOSKELETAL: No clubbing, cyanosis or edema. NEUROLOGIC: No focal or lateralizing signs. Cranial nerves II-12 grossly intact PSYCH: Appropriate affect. Alert and oriented to person, place and time. BREAST: There are no palpable lesions along the bilateral breasts. No axillary adenopathy. SKIN: Good skin turgor. Well perfused. ASSESSMENT: 1. Morbid obesity due to excess calories. 2. Body mass index reduced from 53.5 down to 32.7 3. Macular degeneration 4. Status post sleeve gastrectomy. 5. Mood disorder, bipolar disorder. 6. Depression. 7. Anxiety. 8. Osteoarthritis lower back and knees. 9. Hypertriglyceridemia. 10. Dyslipidemia. 11. Vitamin D deficiency. 12. Secondary hyperparathyroidism. 13. Diabetes type 2 controlled. 14. History of recent stroke with left hemiparesis. 15. History of arrhythmia with pacemaker placement. 16. Dietary surveillance and counseling. 17. History of pacemaker placement. 18. Epigastric abdominal pain. 19. Vitamin A deficiency. PLAN: 1. She reports chronic pain from her medication 2. She is on omeprazole, zantac, and carafate for GERD. Continue for side effects of her medications. 3. Recommend CT of the abdomen and pelvis for diverticulitis and abdominal pain. May need scar tissue removal 4. Recommend bariatric labs.
[2018-06-26 17:27] VITALS: BP 133/88; PULSE 73; TEMP 98.1; BMI 32.6
== END | disposition home or self-care (01) ==
LOC: BARWHC3 14:09
PROVIDERS: ATTEND Surgery Plastic and Reconstructive Surgery
DX: Z48.815 Encounter for surgical aftercare following surgery on the digestive system (principal); E66.01 Morbid (severe) obesity due to excess calories; H35.30 Unspecified macular degeneration; F31.9 Bipolar disorder, unspecified; F41.9 Anxiety disorder, unspecified; E78.1 Pure hyperglyceridemia; E78.5 Hyperlipidemia, unspecified; E55.9 Vitamin D deficiency, unspecified; N25.81 Secondary hyperparathyroidism of renal origin; E11.9 Type 2 diabetes mellitus without complications; I69.354 Hemiplegia and hemiparesis following cerebral infarction affecting left non-dominant side; R10.13 Epigastric pain; E50.9 Vitamin A deficiency, unspecified; G89.29 Other chronic pain; K21.9 Gastro-esophageal reflux disease without esophagitis; Z71.3 Dietary counseling and surveillance; Z68.32 Body mass index [BMI] 32.0-32.9, adult; Z86.79 Personal history of other diseases of the circulatory system; Z98.84 Bariatric surgery status; Z95.0 Presence of cardiac pacemaker; Z79.4 Long term (current) use of insulin; Z79.01 Long term (current) use of anticoagulants; Z79.02 Long term (current) use of antithrombotics/antiplatelets; Z79.899 Other long term (current) drug therapy; Z88.2 Allergy status to sulfonamides; Z88.6 Allergy status to analgesic agent; Z88.8 Allergy status to other drugs, medicaments and biological substances
CPT/HCPCS: 99211

== ENCOUNTER → 2018-07-08 | Outpatient (CLI) | payer MEDICARE, OTHER ==
[2018-07-08 10:45] LABS: Blood Urea Nitrogen 12 mg/dL (7-17)
--- NOTE | 2018-07-08 17:21 | CT ---
EXAMINATION TYPE: CT abdomen pelvis w con DATE OF EXAM: 07/08/2018 COMPARISON: None INDICATION: Mid pelvic pain DLP: 2666.6 mGycm, Automated exposure control for dose reduction was used. CONTRAST: 100 mL of Isovue 300. Study performed with Oral Contrast TECHNIQUE: Axial images were obtained from above the diaphragm to the pubic rami in the axial plane a t 5 mm thick sections. Reconstructed images are reviewed on the computer in the coronal plane. FINDINGS: Limited CT sections are obtained the lung bases. The lung bases are clear. CT ABDOMEN: Liver: Normal Spleen: Multiple calcified splenic granuloma are present. Pancreas: Normal Adrenal glands: The adrenal glands are normal. Gallbladder: Normal Kidneys: No masses are evident. No hydronephrosis is present. No cysts are present. Delayed images were obtained through the kidneys, which remain unremarkable. Aorta: Vascular calcification is within the aorta. Inferior vena cava: Normal. CT PELVIS: Loops of bowel within the abdomen and pelvis are normal. There are loops of bowel which are incom pletely distended or lack oral contrast limiting their evaluation. Appendix: Not clearly identified. No suspicious tubular structures or inflammatory changes are eviden t. Urinary bladder: Normal. Genitourinary structures: Uterus and ovaries are not identified. Osseous structures: No suspicious lytic or sclerotic lesions. Degenerative disc changes are present L 5-S1. IMPRESSIONS: 1. No suspicious abnormality to account for mid pelvic pain. 2. No acute diverticulitis.
== END | disposition home or self-care (01) ==
LOC: RADCTMAIN 09:58
PROVIDERS: ATTEND Surgery Plastic and Reconstructive Surgery
DX: R10.2 Pelvic and perineal pain (principal); K57.92 Diverticulitis of intestine, part unspecified, without perforation or abscess without bleeding
CPT/HCPCS: 82565; 84520; 74177; 36415; Q9967

== ENCOUNTER → 2018-08-30 | Outpatient (CLI) | payer MEDICARE, OTHER ==
--- NOTE | 2018-09-04 11:41 | P.ARTDOP ---
Arterial Doppler LOWER EXTREMITY ARTERIAL DOPPLER: DATE OF SERVICE: 08/30/2018 Reason for study: Chronic bilateral leg pain. Doppler waveforms: Multiphasic bilaterally throughout. Pulse volume recording: []. Pressure gradients: None. Ankle-brachial indices: Greater than 1 bilaterally. Toe pressures: [] on the right, [] on the left Impression: Normal study.
== END | disposition home or self-care (01) ==
LOC: RADUSWWP 13:16
PROVIDERS: ATTEND Physical Medicine & Rehabilitation
DX: M17.0 Bilateral primary osteoarthritis of knee (principal); M19.041 Primary osteoarthritis, right hand; M19.042 Primary osteoarthritis, left hand; M16.12 Unilateral primary osteoarthritis, left hip; M70.62 Trochanteric bursitis, left hip; M25.552 Pain in left hip; M54.5 Low back pain; M47.816 Spondylosis without myelopathy or radiculopathy, lumbar region; M47.817 Spondylosis without myelopathy or radiculopathy, lumbosacral region; F31.9 Bipolar disorder, unspecified; F12.93 Cannabis use, unspecified with withdrawal; R20.2 Paresthesia of skin; M25.561 Pain in right knee; M25.562 Pain in left knee; Z85.43 Personal history of malignant neoplasm of ovary; Z86.73 Personal history of transient ischemic attack (TIA), and cerebral infarction without residual deficits; Z79.01 Long term (current) use of anticoagulants
CPT/HCPCS: 93922

== ENCOUNTER → 2018-10-03 | Outpatient (CLI) | payer MEDICARE, OTHER ==
--- NOTE | 2018-10-03 13:53 | US ---
EXAMINATION TYPE: US venous doppler duplex LE DATE OF EXAM: 10/03/2018 1:18 PM COMPARISON: NONE CLINICAL HISTORY: I80.9. Hx of TIA, on blood thinners. Calf discomfort. No redness or swelling SIDE PERFORMED: Bilateral TECHNIQUE: The lower extremity deep venous system is examined utilizing real time linear array sonog juan daniel with graded compression, doppler sonography and color-flow sonography. VESSELS IMAGED: External Iliac Vein (EIV) Common Femoral Vein Deep Femoral Vein Greater Saphenous Vein * Femoral Vein Popliteal Vein Small Saphenous Vein * Proximal Calf Veins- not well visualized (* superficial vessels) Grayscale, color doppler, spectral doppler imaging performed of the deep veins of the lower extremit ies. There is normal flow, compressibility, vascular waveforms. Right Leg: Negative for DVT Left Leg: Negative for DVT IMPRESSION: No sonographic evidence of deep venous thrombosis within either bilateral lower extremit y.
== END | disposition home or self-care (01) ==
LOC: RADUSWWP 12:50
PROVIDERS: ATTEND Physical Medicine & Rehabilitation
DX: I80.9 Phlebitis and thrombophlebitis of unspecified site (principal); M54.5 Low back pain; M47.816 Spondylosis without myelopathy or radiculopathy, lumbar region; M47.817 Spondylosis without myelopathy or radiculopathy, lumbosacral region; M17.0 Bilateral primary osteoarthritis of knee; M19.041 Primary osteoarthritis, right hand; M19.042 Primary osteoarthritis, left hand; M70.62 Trochanteric bursitis, left hip; M16.12 Unilateral primary osteoarthritis, left hip; R20.2 Paresthesia of skin; Z79.01 Long term (current) use of anticoagulants
CPT/HCPCS: 93970

== ENCOUNTER → 2018-11-27 | Outpatient (CLI) | payer MEDICARE, OTHER ==
[2018-11-27 13:51] VITALS: BP 133/87; PULSE 46; TEMP 97.9; BMI 30.5
--- NOTE | 2018-11-27 14:22 | P.PN ---
Subjective Progress Note Date: 11/27/18 DATE OF SERVICE: 11/27/2018 CHIEF COMPLAINT: Followup sleeve gastrectomy. HISTORY OF PRESENT ILLNESS: Gabbi Pérez is a 58-year-old female status post sleeve gastrectomy, May 2013. She is 5 years out. She comes in with epigastric abdominal pain, intermittent that is worse with eating. She has history of multiple abdominal surgeries. She is off pain medications. She is pending back surgery for next month. She has lost 100 pounds from the time of her surgery in 2014. She comes in with weight down from 241 to 228 pounds. At her height of 6 feet, her ideal body weight is 183 pounds. Her highest weight lifetime was 394 pounds. She was 338 pounds prior to her surgery. Today she comes weighing 225 pounds from 240 pounds, 5 months ago. She has lost 16 pounds in 2 year 5 months. Lifetime weight loss is 169 pounds. Percent excess weight loss is 80%. Body mass index is reduced from 53.5 down to 30.5. PAST MEDICAL HISTORY: 1. Type 2 diabetes mellitus. 2. Bipolar disorder. 3. Gastric ulcers. 4. Colon polyps. 5. Depression D deficiency. 6. ADHD. 7. Morbid obesity due to excess calories, BMI 53.5, highest 8. Stroke, with left hemiparesis. 9. Coronary artery disease. 10. Ocular degeneration. 11. Vitamin D deficiency. 12. Anxiety. 13. Bladder urgency. 14. Personal history of stroke 15. History of heart attack. PAST SURGICAL HISTORY: 1. Sleeve gastrectomy. 2. Upper endoscopy. 3. Colonoscopy. 4. Ventral hernia repair. 5. . 6. Pacemaker placement. MEDICATIONS: Home Medications Medication Instructions Recorded Confirmed ARIPiprazole [Abilify] 15 mg PO DAILY 08/07/13 01/29/18 Multivitamins, Thera [Multivitamin] 1 tab PO DAILY 08/28/13 01/29/18 Insulin Detemir (Levemir) [Levemir] 60 unit SQ BID 10/02/13 01/29/18 Albuterol Inhaler [Ventolin Hfa 1 - 2 puff INHALATION Q4HR PRN 09/29/15 01/29/18 Inhaler] Atorvastatin [Lipitor] 80 mg PO HS 09/29/15 01/29/18 Clopidogrel [Plavix] 75 mg PO HS 09/29/15 01/29/18 Fludrocortisone [Florinef] 0.2 mg PO QAM 09/29/15 01/29/18 Lisinopril [Prinivil] 10 mg PO DAILY 09/29/15 01/29/18 Oxybutynin Chloride [Ditropan] 5 mg PO BID 09/29/15 01/29/18 Apixaban [Eliquis] 5 mg PO BID 07/06/16 01/29/18 Fluticasone/Salmeterol [Advair 1 inhalation PO BID 02/20/17 01/29/18 250-50 Diskus] HYDROcodone/APAP 5-325MG [[place] 1 tab PO TID PRN 02/20/17 01/29/18 5-325] Insulin Aspart [NovoLOG Flexpen] 24 units SQ TID-W/MEALS 02/20/17 01/29/18 Metoprolol Tartrate [Lopressor] 50 mg PO BID 02/20/17 01/29/18 Midodrine HCl [ProAmatine] 2.5 mg PO TID 02/20/17 01/29/18 Ranitidine HCl [Zantac] 150 mg PO BID 02/20/17 01/29/18 lamoTRIgine [LaMICtal] 100 mg PO TID 02/20/17 01/29/18 Calcium Carbonate [Calcium] 600 mg PO DAILY 07/30/17 01/29/18 Cholecalciferol [Vitamin D3] 1,000 unit PO DAILY 07/30/17 01/29/18 Cyclobenzaprine [Flexeril] 10 mg PO BID 07/30/17 01/29/18 DULoxetine HCL [Cymbalta] 60 mg PO DAILY 07/30/17 01/29/18 Ferrous Sulfate [Feosol] 325 mg PO DAILY 07/30/17 01/29/18 Fluticasone Nasal [place] [Flonase 2 spr EA NOSTRIL DAILY 07/30/17 01/29/18 Nasal [place]] [place]-3 Fatty Acids/Fish Oil [Fish 1 each PO DAILY 07/30/17 01/29/18 Oil 1,000 mg Softgel] Vitamin A 8,000 unit PO DAILY 07/30/17 01/29/18 Previous Rx's Medication Instructions Recorded Ranitidine HCl [Zantac] 150 mg PO BID #30 tab 08/01/17 ALLERGIES: 1. ADHESIVE TAPE. 2. ASPIRIN. 3. INVEGA. 4. SULFA. 5. GEODON. SOCIAL HISTORY: Active additional marijuana use. No reports of active alcohol abuse. FAMILY HISTORY: Pertinent for morbid obesity including cervical cancer and genitourinary cancer. REVIEW OF SYSTEMS: CONSTITUTIONAL: At her height of 6 feet, her ideal body weight is 183 pounds. Her highest weight lifetime was 394 pounds. Today she comes weighing 240 pounds from 281 pounds, 2 years ago. She has lost 41 pounds in 2 years. Percentage of weight loss is 73 %, lifetime. Body mass index is reduced from 53.5 down to 32.7. She is 57 pounds overweight. GASTROINTESTINAL: As above, heartburn. Also reports abdominal pain. HEENT: Has troubles with vision with macular degeneration. Denies any dysphagia. Denies any troubles with hearing. ENDOCRINE: She has insulin-dependent diabetes; however, moderately improved since her sleeve gastrectomy. No history of thyroid disorder. RESPIRATORY: She reports increased daytime somnolence and has CPAP machine. CARDIOVASCULAR: History of hyperlipidemia. History of chest pain with heart attack. NEURO: History of stroke including fibromyalgia and headaches. PSYCH: History of depression including mood disorders and ADHD. MUSCULOSKELETAL: Has osteoarthritis of the lower back or hips. SKIN: Has rash. Past skin cancer. PHYSICAL EXAM: VITAL SIGNS: Height 6 ft. Weight 225 pounds. BMI 30.5 Vital Signs Temp 97.9 F 11/27/18 13:41 Pulse 46 L 11/27/18 13:41 Resp BP 133/87 11/27/18 13:41 Pulse Ox GENERAL: Well developed and in no acute distress. Pleasant. HEENT: No sclera icterus. Extraocular movements grossly intact. Moist buccal mucosa. Head is atraumatic, normocephalic. Hears conversational speech. No nasal drainage. NECK: Supple without lymphadenopathy. No JV distention. CHEST: Non-labored respirations and equal bilateral excursions. CARDIOVASCULAR: Regular rate and rhythm. Palpable 2+ radial pulses. ABDOMEN: Soft, no peritonitis. MUSCULOSKELETAL: No clubbing, cyanosis or edema. NEUROLOGIC: No focal or lateralizing signs. Cranial nerves II-12 grossly intact PSYCH: Appropriate affect. Alert and oriented to person, place and time. BREAST: There are no palpable lesions along the bilateral breasts. No axillary adenopathy. SKIN: Good skin turgor. Well perfused. ASSESSMENT: 1. Morbid obesity due to excess calories. 2. Body mass index reduced from 53.5 down to 30.5 3. Macular degeneration 4. Status post sleeve gastrectomy. 5. Mood disorder, bipolar disorder. 6. Depression. 7. Anxiety. 8. Osteoarthritis lower back and knees. 9. Hypertriglyceridemia. 10. Dyslipidemia. 11. Vitamin D deficiency. 12. Secondary hyperparathyroidism. 13. Diabetes type 2 controlled. 14. History of recent stroke with left hemiparesis. 15. History of arrhythmia with pacemaker placement. 16. Dietary surveillance and counseling. 17. History of pacemaker placement. 18. Epigastric abdominal pain. 19. Vitamin A deficiency. 20. Panniculitis PLAN: 1. Recommend robotic lysis of adhesions for his abdominal pain. 2. Recommend Nystatin powder for panniculitis. 3. She has history of gastric ulcers and colon polyps. Recommend EGD and colon for which she is elevated risk for arrhythmia and pacemaker. 4. Recommend bariatric labs. Laboratory Last Values WBC 9.0 k/uL (3.8-10.6) 11/27/18 14:56 RBC 5.63 m/uL (3.80-5.40) H 11/27/18 14:56 Hgb 15.9 gm/dL (11.4-16.0) 11/27/18 14:56 Hct 51.0 % (34.0-46.0) H 11/27/18 14:56 MCV 90.5 fL (80.0-100.0) 11/27/18 14:56 MCH 28.3 pg (25.0-35.0) 11/27/18 14:56 MCHC 31.3 g/dL (31.0-37.0) 11/27/18 14:56 RDW 13.7 % (11.5-15.5) 11/27/18 14:56 Plt Count 187 k/uL (150-450) 11/27/18 14:56 PT 10.6 sec (9.0-12.0) 11/27/18 14:56 INR 1.0 (<1.2) 11/27/18 14:56 APTT 28.2 sec (22.0-30.0) 11/27/18 14:56 Sodium 142 mmol/L (135-145) 11/27/18 14:56 Potassium 3.8 mmol/L (3.5-5.5) 11/27/18 14:56 Chloride 104 mmol/L (96-109) 11/27/18 14:56 Carbon Dioxide 29.1 mmol/L (21.6-31.8) 11/27/18 14:56 Anion Gap 8.90 mmol/L (4.00-12.00) 11/27/18 14:56 BUN 11.0 mg/dL (9.0-27.0) 11/27/18 14:56 Creatinine 0.7 mg/dL (0.6-1.5) 11/27/18 14:56 Est GFR (CKD-EPI)AfAm 109.1 (60.0-200.0) 11/27/18 14:56 Est GFR (CKD-EPI)NonAf 94.2 (60.0-200.0) 11/27/18 14:56 BUN/Creatinine Ratio 15.71 Ratio (12.00-20.00) 11/27/18 14:56 Glucose 129 mg/dL (70-110) H 11/27/18 14:[address] Glu mg/dL 197 11/27/18 14:56 Hemoglobin A1c 8.5 % (4.0-6.0) H 11/27/18 14:56 Calcium 9.2 mg/dL (8.7-10.3) 11/27/18 14:56 Phosphorus 4.2 mg/dL (2.4-5.1) 11/27/18 14:56 Magnesium 2.1 mg/dL (1.5-2.4) 11/27/18 14:56 Iron 34 ug/dL (50-170) L 11/27/18 14:56 TIBC 310 ug/dL (228-460) 11/27/18 14:56 Iron Saturation 10.97 (12.00-45.00) L 11/27/18 14:56 Ferritin 61.4 ng/mL (10.0-291.0) 11/27/18 14:56 Total Bilirubin 0.3 mg/dL (0.3-1.2) 11/27/18 14:56 AST 22 U/L (13-35) 11/27/18 14:56 ALT 18 U/L (8-44) 11/27/18 14:56 Alkaline Phosphatase 86 U/L (41-126) 11/27/18 14:56 Total Protein 6.1 g/dL (6.2-8.2) L 11/27/18 14:56 Albumin 4.50 g/dL (3.80-4.90) 11/27/18 14:56 Globulin 1.6 g/dL (1.6-3.3) 11/27/18 14:56 Albumin/Globulin Ratio 2.81 g/dL (1.60-3.17) 11/27/18 14:56 Prealbumin 16.0 mg/dL (18.0-42.0) L 11/27/18 14:56 Triglycerides 112.0 mg/dL (0.0-149.0) 11/27/18 14:56 Cholesterol 96 mg/dL (0-200) 11/27/18 14:56 LDL Cholesterol, Calc 42.6 mg/dL (0.0-131.0) 11/27/18 14:56 VLDL Cholesterol, Calc 22.40 mg/dL (5.00-40.00) 11/27/18 14:56 HDL Cholesterol 31.0 mg/dL (40.0-60.0) L 11/27/18 14:56 Cholesterol/HDL Ratio 3.10 11/27/18 14:56 Vitamin A 41 ug/dL (38-106) 11/27/18 14:56 Vitamin B1 89 ug/L (38-122) 11/27/18 14:56 Vitamin B12 935.0 pg/mL (200.0-944.0) 11/27/18 14:56 Vitamin D 25-Hydroxy 24.4 ng/mL (30.0-100.0) L 11/27/18 14:56 Folate 21.7 ng/mL 11/27/18 14:56 TSH 0.730 uIU/mL (0.350-5.500) 11/27/18 14:56 PTH Intact 69.5 pg/mL (14.0-72.0) 11/27/18 14:56 Copper 1578 ug/L (810-1990) 11/27/18 14:56 Selenium 104 mcg/L (63-160) 11/27/18 14:56 Zinc 68 ug/dL (60-130) 11/27/18 14:56 Iron is low Vitamin D is low Pre-albumin is low Objective - Vital Signs Vital signs: Vital Signs Temp 97.9 F 11/27/18 13:41 Pulse 46 L 11/27/18 13:41 Resp BP 133/87 11/27/18 13:41 Pulse Ox Intake & Output 11/26/18 11/27/18 11/27/18 18:59 06:59 18:59 Weight 102.058 kg - Labs CBC & Chem 7: 11/27/18 14:56 11/27/18 14:56
[2018-11-27 15:33] LABS: HGB 15.9 gm/dL (11.4-16.0); MCH 28.3 pg (25.0-35.0); MCHC 31.3 g/dL (31.0-37.0); MCV 90.5 fL (80.0-100.0); Mean Platelet Volume 7.8; Platelet Count 187 k/uL (150-450); RBC 5.63 m/uL (3.80-5.40); RDW 13.7 % (11.5-15.5)
[2018-11-27 15:52] LABS: Partial Thromboplastin Time 28.2 sec (22.0-30.0); Prothrombin Time 10.6 sec (9.0-12.0)
[2018-11-28 00:47] LABS: Iron Saturation 10.97 (12.00-45.00)
[2018-11-28 00:56] LABS: Ferritin 61.4 ng/mL (10.0-291.0); Vitamin D 25 Hydroxy 24.4 ng/mL (30.0-100.0)
[2018-11-28 01:05] LABS: African American GFR (CKD) 109.1 (60.0-200.0); Albumin 4.5 g/dL (3.80-4.90); Albumin/Globulin Ratio 2.81 (1.60-3.17); Anion Gap 8.9 mmol/L (4.00-12.00); BUN/Creat Ratio 15.71 Ratio (12.00-20.00); Calcium 9.2 mg/dL (8.7-10.3); Carbon Dioxide 29.1 mmol/L (21.6-31.8); Chol/HDL Ratio 3.1; Folate, Serum 21.7 ng/mL; Globulin 1.6 g/dL (1.6-3.3); LDL Cholesterol,Calculated 42.6 mg/dL (0.0-131.0); Magnesium 2.1 mg/dL (1.5-2.4); Non-African American GFR(CKD) 94.2 (60.0-200.0); Phosphorus 4.2 mg/dL (2.4-5.1); Potassium 3.8 mmol/L (3.5-5.5); Total Bilirubin 0.3 mg/dL (0.3-1.2); Total Protein 6.1 g/dL (6.2-8.2); VLDL Calculation 22.4 mg/dL (5.00-40.00)
[2018-11-28 04:29] LABS: Hemoglobin A1C 8.5 % (4.0-6.0)
[2018-11-28 14:18] LABS: Zinc, Serum 68 ug/dL (60-130)
[2018-11-29 06:35] LABS: Vitamin A 41 ug/dL (38-106)
[2018-11-29 06:58] LABS: Vit B1(Thiamine) 89 ug/L (38-122)
[2018-12-03 17:22] LABS: Selenium 104 mcg/L (63-160)
== END | disposition home or self-care (01) ==
LOC: BARWHC3 12:55
PROVIDERS: ATTEND Surgery Plastic and Reconstructive Surgery
DX: Z48.815 Encounter for surgical aftercare following surgery on the digestive system (principal); E66.01 Morbid (severe) obesity due to excess calories; Z68.30 Body mass index [BMI] 30.0-30.9, adult; H35.30 Unspecified macular degeneration; Z98.84 Bariatric surgery status; F31.9 Bipolar disorder, unspecified; M17.0 Bilateral primary osteoarthritis of knee; E78.1 Pure hyperglyceridemia; E78.5 Hyperlipidemia, unspecified; E55.9 Vitamin D deficiency, unspecified; E21.1 Secondary hyperparathyroidism, not elsewhere classified; E11.9 Type 2 diabetes mellitus without complications; Z95.0 Presence of cardiac pacemaker; I25.10 Atherosclerotic heart disease of native coronary artery without angina pectoris; R10.13 Epigastric pain; E50.9 Vitamin A deficiency, unspecified; M79.3 Panniculitis, unspecified; Z83.49 Family history of other endocrine, nutritional and metabolic diseases; Z71.3 Dietary counseling and surveillance; Z79.4 Long term (current) use of insulin; Z79.02 Long term (current) use of antithrombotics/antiplatelets; Z79.01 Long term (current) use of anticoagulants; Z79.51 Long term (current) use of inhaled steroids; Z79.891 Long term (current) use of opiate analgesic; Z79.899 Other long term (current) drug therapy; Z88.2 Allergy status to sulfonamides; Z88.8 Allergy status to other drugs, medicaments and biological substances; Z91.048 Other nonmedicinal substance allergy status; E89.1 Postprocedural hypoinsulinemia; D50.9 Iron deficiency anemia, unspecified; K90.9 Intestinal malabsorption, unspecified; K76.9 Liver disease, unspecified; N19 Unspecified kidney failure; K50.90 Crohn's disease, unspecified, without complications
CPT/HCPCS: 84255; 84134; 84425; 80061; 80053; 82607; 82728; 82525; 82746; 83540; 83550; 83735; 84100; 84443; 84590; 84630; 85027; 85610; 85730; 82306; 83970; 83036; 36415; G0463; 99211

== ENCOUNTER → 2018-12-20 | Day surgery (SDC) | payer MEDICARE, OTHER ==
[~2018-12-20] MED LIST changes: +HYDROCHLOROTHIAZIDE 25 MG TAB PO SCH; -LACTATED RINGERS 1,000 ML IV SCH; -LIDOCAINE 1% 20 ML VIAL (10MG/ML) FOR IV START INTRADERMA PRN; +LISINOPRIL 10 MG TAB PO STA; +METOPROLOL TARTRATE 50 MG TAB PO STA; -MIDAZOLAM 2 MG/2 ML VIAL IV PRN; +MIDODRINE 5 MG TAB PO STA; +ONDANSETRON 4 MG/2 ML VIAL IVP STA; +PREMYELOGRAM MEDICATION REVIEW 1 EACH MISC PO NR; -PROPOFOL 10 MG/ML 20 ML VIAL IV ONE; +amLODIPine 10 MG TAB PO SCH; +hydrALAZINE HCL 20 MG/ML 1 ML VIAL IVP STA
[2018-12-20 09:19] LABS: Platelet Count 163 k/uL (150-450)
[2018-12-20 09:32] LABS: Prothrombin Time 10.3 sec (9.0-12.0)
[2018-12-20 09:41] VITALS: TEMP 97.9
[2018-12-20 11:43] VITALS: RESP 16
--- NOTE | 2018-12-20 12:55 | FL ---
Lumbar puncture and Myelogram. INDICATION: Pain FINDINGS: Fluoroscopy time: 1 minute 20 seconds. Images obtained: 7. The procedure was explained to the patient. Risks complications and benefits were discussed. Alternat joselin were discussed. All questions were answered. Informed consent was obtained. A timeout was performed. The L3-L4 level was chosen for access. Maximum barrier sterile technique was utilized. The skin was c leansed with Betadine and the patient sterilely prepped and draped in the usual manner. The skin and deeper tissue was anesthetized with 1% Lidocaine. Utilizing a 22-gauge spinal needle the spinal canal was accessed. Good CSF return was evident. Isovue 200 was utilized, 9 milliliters was administered under fluoroscopic observation. The stylette was replaced and the needle withdrawn. Fluoroscopic spot images were obtained. The patient tolerated the procedure well. Discharge instructions were discussed with the patient. Th e patient was transferred to CT for additional evaluation. Findings: Limited views of the lumbar spinal canal with contrast were obtained. Anterior thecal sac compression is evident at L2-3 L3-4 L4-5. Additional evaluation will be performed with CT. IMPRESSIONS: 1. Successful Lumbar Puncture. 2. Anterior thecal sac compression L2-3, L3-4, L4-5. This will be additionally evaluated on the lumba r post myelogram CT.
--- NOTE | 2018-12-20 15:53 | CT ---
EXAMINATION TYPE: CT lumbar spine w con DATE OF EXAM: 12/20/2018 COMPARISON: Myelogram 12/20/2018 HISTORY: Lower back pain CT DLP: 950 mGycm CONTRAST: Thecal sac injected with 9 mL of Isovue M200. TECHNIQUE: CT of the lumbar spine is performed on a spiral scan at 3 mm thick sections. Reconstructed images are performed in the coronal and sagittal planes. FINDINGS: T12-L1: No focal disc herniation or significant disc bulge is evident. No spinal canal stenosis or neural foraminal stenosis is present. L1-L2: No focal disc herniation or significant disc bulge is evident. No spinal canal stenosis or n eural foraminal stenosis is present L2-L3: Minimal disc bulge and may have anterior thecal sac contact. No AP spinal canal stenosis is pr esent. Vacuum disc phenomenon is present. Facets appear normal. Neural foramen are patent. L3-L4: There is narrowing of the disc height. No AP spinal canal stenosis is present. Neural foramen are patent. L4-L5: Broad-based disc bulge has mild anterior thecal sac contact. No AP spinal canal stenosis prese nt. Facet hypertrophy is present. Mild left foraminal narrowing is present from facet hypertrophy. L5-S1: There is loss of disc height to this level. No spinal canal stenosis is present. Vacuum disc p henomenon is present. Neural foramen are patent. Vertebral alignment appears normal. IMPRESSION: 1. Broad-based disc bulging with mild anterior thecal sac compression present L2-3, L3-4, L4-5. 2. Mild right foraminal narrowing at L4-5 due to facet hypertrophy
--- NOTE | 2018-12-20 16:20 | P.CONS ---
History of Present Illness - Reason for Consult Consult date: 12/20/18 Elevated BP Requesting physician: Tello Valenzuela - Chief Complaint Medical management for elevated BP - History of Present Illness 58-year-old female with PMH of diabetes mellitus on insulin, hypertension, obstructive sleep apnea noncompliant with CPAP, history of CVA in 2016 with left-sided residual weakness, pacemaker for autonomic instability positive tilt table test presents to [facility] for lumbar CT myelogram. [facility] has been consulted for the patient's elevated blood pressure. Patient was seen and examined. Patient reports hypertension that has been ongoing for the past 18 years. Patient reports also having autonomic instabil ity, has been taking Midodrin and fludrocortisone, no dose taken today. Patient states that she has been on metoprolol and lisinopril for years. Patient states that she typically misses 2 doses a week. She has a point of sale associate, Dr. Cobb from [place]. Her PCP is Dr. Canales. Patient reports some nausea that started after her computed tomography scan but no vomiting. She does complain of some dizziness, described as lightheadedness but states that this is chronic for her. Her endorses a cough that has been ongoing for the past month, but attributes this due to her smoking history of 2 pounds of tobacco monthly. She denies any headache, lower extremity edema, fever or chills, cough, chest pain, shortness of breath, changes in urination or bowel habits. No changes in appetite or weight. She denies any numbness/weakness/tingling of the extremities. Patient does report residual left-sided weakness since her stroke in 2016 that is progressively improving with physical therapy. Her daughter is at bedside and states that her mother's blood pressure typically runs high. Her BP is typically in the 170s over 100s in her PCP clinic. Patient also reports bilateral hip pain and lower extremity pain that has been ongoing for many years and pain that is uncontrolled. Her current pain scale is 7 out of 10 in severity. Patient states that she has been tried on oral morphine and Dilaudid but marijuana seems to work the best for her. Since her procedure, her blood pressure has ran as high as SBP 182 over DBP 107. Review of Systems Pertinent positives and negatives as discussed in HPI, a complete review of systems was performed and all other systems are negative. Past Medical History Past Medical History: Asthma, Cancer, CVA/TIA, Diabetes Mellitus, Fibromyalgia, GERD/Reflux, Musculoskeletal Disorder, Osteoarthritis (OA), Seizure Disorder Additional Past Medical History / Comment(s): back pain, lower extremity edema, diverticulitis, irrit bowel, hemorrhoids, colitis. Cervical ca 1984., lymphadema, neuropathy, iritis. Pt states her Dr thinks she has diab type 1., chronic pain in legs, History of Any Multi-Drug Resistant Organisms: None Reported Past Surgical History: Adenoidectomy, Bariatric Surgery, Cholecystectomy, Heart Catheterization, Hysterectomy, Tonsillectomy Additional Past Surgical History / Comment(s): colonoscopy, carpul tunnel bilateral, sleeve 06/09/13, partial hysterectomy, hemmroidectomy, bladder sling, cholecystectomy 2011, right eye replaced lens and removed cataracts Past Anesthesia/Blood Transfusion Reactions: No Reported Reaction Type of Cardiac Device: Permanent Pacemaker Device Placement Date:: 06/2015 Past Psychological History: Anxiety, Bipolar, PTSD Additional Psychological History / Comment(s): Disassociation Smoking Status: Current every day smoker Past Alcohol Use History: Occasional Additional Past Alcohol Use History / Comment(s): smokes 1 1/2 ppd since age 13 Past Drug Use History: Marijuana Additional Drug Use History / Comment(s): Medical Marijuana - Past Family History Mother Family Medical History: Unable to Obtain Medications and Allergies Home Medications Medication Instructions Recorded Confirmed Type ARIPiprazole [Abilify] 15 mg PO DAILY 08/07/13 12/11/18 History Multivitamins, Thera [Multivitamin] 1 tab PO DAILY 08/28/13 12/11/18 History Insulin Detemir (Levemir) [Levemir] 64 unit SQ BID 10/02/13 12/11/18 History Albuterol Inhaler [Ventolin Hfa 1 - 2 puff INHALATION Q4HR PRN 09/29/15 12/11/18 History Inhaler] Clopidogrel [Plavix] 75 mg PO HS 09/29/15 12/11/18 History Fludrocortisone [Florinef] 0.1 mg PO QAM 09/29/15 12/11/18 History Lisinopril [Prinivil] 10 mg PO DAILY 09/29/15 12/11/18 History Oxybutynin Chloride [Ditropan] 5 mg PO BID 09/29/15 12/11/18 History Apixaban [Eliquis] 5 mg PO BID 07/06/16 12/11/18 History Insulin Aspart [NovoLOG Flexpen] 0 units SQ TID-W/MEALS 02/20/17 12/11/18 History Metoprolol Tartrate [Lopressor] 50 mg PO BID 02/20/17 12/11/18 History Midodrine HCl [ProAmatine] 2.5 mg PO TID 02/20/17 12/11/18 History Ranitidine HCl [Zantac] 150 mg PO BID 02/20/17 12/11/18 History lamoTRIgine [LaMICtal] 150 mg PO DAILY 02/20/17 12/11/18 History Cholecalciferol [Vitamin D3] 50,000 unit PO WEEKLY 07/30/17 12/11/18 History DULoxetine HCL [Cymbalta] 60 mg PO DAILY 07/30/17 12/11/18 History Baclofen [Lioresal] 20 mg PO TID 12/11/18 12/11/18 History Exenatide Microspheres [Bydureon 2 mg SQ WEEKLY 12/11/18 12/11/18 History Pen] Gabapentin [Neurontin] 300 mg PO BID 12/11/18 12/11/18 History Potassium 99 mg PO DAILY 12/11/18 12/11/18 History Sucralfate [Carafate] 1 gm PO TID 12/11/18 12/11/18 History lamoTRIgine [LaMICtal Odt] 200 mg PO HS 12/11/18 12/11/18 History Omeprazole 40 mg PO DAILY 12/12/18 12/12/18 History Allergies Allergy/AdvReac Type Severity Reaction Status Date / Time adhesive Allergy HIVES/blist Verified 11/27/18 15:35 ers aspirin Allergy THINS Verified 11/27/18 15:35 BLOOD TOO MUCH morphine Allergy Nausea Verified 12/11/18 16:10 paliperidone [From Invega] Allergy Unknown Verified 11/27/18 15:35 Sulfa (Sulfonamide Allergy depresiion,suicidal Verified 11/27/18 15:35 Antibiotics) tendency ziprasidone HCl [From Geodon] Allergy SUICIDAL Verified 11/27/18 15:35 TENDENCY ziprasidone mesylate Allergy SUICIDAL Verified 11/27/18 15:35 [From Geodon] TENDENCY BANDAIDS Allergy Hives/BLIST Uncoded 11/27/18 15:35 ERS Physical Exam Vitals: Vital Signs Temp Pulse Resp BP Pulse Ox 12/20/18 15:30 70 16 177/88 98 12/20/18 15:00 70 16 182/107 98 12/20/18 14:30 70 16 178/102 98 12/20/18 14:00 70 16 163/103 98 12/20/18 13:30 66 16 180/112 98 12/20/18 13:15 66 16 169/102 98 12/20/18 13:00 68 16 169/97 98 12/20/18 12:45 66 16 169/101 98 12/20/18 12:30 68 16 161/111 98 12/20/18 11:57 76 16 166/78 95 12/20/18 11:42 78 16 142/94 95 12/20/18 11:32 78 18 149/92 94 L 12/20/18 11:00 74 20 160/92 95 12/20/18 10:24 78 22 161/91 96 12/20/18 09:43 88 20 189/98 95 12/20/18 09:15 84 20 203/105 96 12/20/18 08:55 86 22 182/102 96 12/20/18 08:30 97.9 F 88 20 166/79 94 L General: [non toxic], [no distress], [appears at stated age] Derm: [warm], [dry] Head: [atraumatic], [normocephalic], [symmetric] Eyes: [EOMI], [no lid lag], [anicteric sclera] Mouth: [no lip lesion], [mucus membranes moist] Cardiovascular: [S1S2 reg], [no murmur], [positive DP pulse bilateral], Lungs: [CTA bilateral], [no rhonchi, no rales] , [no accessory muscle use] Abdominal: [soft], [ nontender to palpation], [no guarding], [no appreciable organomegaly] Ext: [no gross muscle atrophy], [no edema], [no contractures] Neuro: [ CN II-XI grossly intact], [4 out of 5 left upper and lower extremity, 5 out of 5 otherwise throughout, sensation intact to touch] Psych: [Alert], [oriented], [appropriate affect] Results CBC & Chem 7: 12/20/18 09:00 Assessment and Plan Assessment: Assessment and plan Hypertensive urgency History of CVA with left-sided residual weakness Autonomic instability Obstructive sleep apnea Diabetes mellitus on insulin SBP as high as 203, DBP as high as 111. Repeat blood pressure during history and physical is 134/90. Patient also noncompliant with CPAP which could be contributing to her elevated BP. Plans: Continue home dose of lisinopril and metoprolol. Patient was given hydrochlorothiazide 25 mg and amlodipine 10 mg but I do not expect the medication to kick in at the time of history and physical. Patient was also given 10 mg of IV hydralazine which seemed to have effectively brought her blood pressure down to acceptable levels. Scripts has been sent for hydralazine 10 mg by mouth 3 times a day for 10 days. Patient has been advised to follow-up with her PCP within 3 days for either continuation or adjustment of her antihypertensive medication. Patient, daughter and verbalized understanding of the plan. Patient states that she is ALLERGIC to aspirin. Plans: Continue Plavix. Patient should be on a statin but we will defer this decision to her PCP. Plans: Continue fludrocortisone and Midodrin. She has not been compliant with her CPAP therapy. Plans: Patient will need adequate follow-up with her coding support specialist Dr. Mckinney, which she has not seen in "years" Plans: Continue home dose insulin regimen. DVT prophylaxis: [Eliquis] Discussed with: [Patient, and daughter] Anticipated discharge: [Today] Anticipated discharge place: [Home] A total of [45] minutes was spent on the care of this complex patient more than 50% of the time was spent in counseling and care coordination. [Her blood pressure has come down with hydralazine 10 mg IV. I have prescribed her hydralazine 10 mg by mouth 3 times a day to be continued with her home dose of lisinopril and metoprolol. She is to follow-up with her PCP within 3 days. Further adjustment of her antihypertensive medication will need to be made with her PCP. She has only been given a 10 day prescription for hydralazine.]
[2018-12-20 16:28] VITALS: BP 134/90; PULSE 66
== END ==
LOC: RADPROMAIN 07:35
PROVIDERS: ATTEND Orthopaedic Surgery Orthopaedic Surgery of the Spine
DX: M51.16 Intervertebral disc disorders with radiculopathy, lumbar region (principal); M48.061 Spinal stenosis, lumbar region without neurogenic claudication; M47.26 Other spondylosis with radiculopathy, lumbar region; E78.5 Hyperlipidemia, unspecified; I11.9 Hypertensive heart disease without heart failure; M25.551 Pain in right hip; M25.552 Pain in left hip; G47.33 Obstructive sleep apnea (adult) (pediatric); I69.354 Hemiplegia and hemiparesis following cerebral infarction affecting left non-dominant side; J45.909 Unspecified asthma, uncomplicated; M79.7 Fibromyalgia; K21.9 Gastro-esophageal reflux disease without esophagitis; G40.909 Epilepsy, unspecified, not intractable, without status epilepticus; K58.9 Irritable bowel syndrome, unspecified; E10.40 Type 1 diabetes mellitus with diabetic neuropathy, unspecified; F41.9 Anxiety disorder, unspecified; F31.9 Bipolar disorder, unspecified; F43.10 Post-traumatic stress disorder, unspecified; I16.0 Hypertensive urgency; G47.419 Narcolepsy without cataplexy; G90.9 Disorder of the autonomic nervous system, unspecified; K25.9 Gastric ulcer, unspecified as acute or chronic, without hemorrhage or perforation; H91.90 Unspecified hearing loss, unspecified ear; F17.210 Nicotine dependence, cigarettes, uncomplicated; Z79.4 Long term (current) use of insulin; Z85.43 Personal history of malignant neoplasm of ovary; Z95.0 Presence of cardiac pacemaker; Z79.899 Other long term (current) drug therapy; Z85.41 Personal history of malignant neoplasm of cervix uteri; M17.0 Bilateral primary osteoarthritis of knee; Z90.710 Acquired absence of both cervix and uterus; Z90.49 Acquired absence of other specified parts of digestive tract; Z90.89 Acquired absence of other organs; Z98.84 Bariatric surgery status; Z98.41 Cataract extraction status, right eye; Z96.1 Presence of intraocular lens; K52.9 Noninfective gastroenteritis and colitis, unspecified; Z79.02 Long term (current) use of antithrombotics/antiplatelets; Z79.01 Long term (current) use of anticoagulants; Z79.52 Long term (current) use of systemic steroids; Z91.19 Patient's noncompliance with other medical treatment and regimen; Z91.048 Other nonmedicinal substance allergy status; Z88.6 Allergy status to analgesic agent; Z88.5 Allergy status to narcotic agent; Z88.8 Allergy status to other drugs, medicaments and biological substances; Z88.2 Allergy status to sulfonamides; Z97.3 Presence of spectacles and contact lenses; Z82.49 Family history of ischemic heart disease and other diseases of the circulatory system; Z83.3 Family history of diabetes mellitus
CPT/HCPCS: 85049; 85610; 62304; 72132; J0360; J2405; Q9966

== ENCOUNTER 2019-02-08 17:54 | Emergency (ER) | payer MEDICARE, OTHER ==
--- NOTE | 2019-02-08 18:16 | ED ---
General Adult HPI - General Chief complaint: Abdominal Pain Stated complaint: Vomiting Time Seen by Provider: 02/08/19 18:16 Source: patient Mode of arrival: ambulatory Limitations: no limitations - History of Present Illness Initial comments: Patient presents the ED with her for evaluation. Patient states that she has had epigastric abdominal pain for the past 3 weeks or so, and she states that she has had nausea and vomiting for the past 4 days or so. Patient states that she had gastric sleeve surgery performed by Dr. Melendez in 2014. Patient denies trauma or injury, fever or chills, headache, chest pain, dyspnea, dizziness, lower abdominal pain, diarrhea or constipation, bloody or melanotic stool, hematemesis, dysuria/hematuria/urinary frequency/urinary symptoms, or any other symptoms or complaints. - Related Data Home Medications Medication Instructions Recorded Confirmed ARIPiprazole [Abilify] 15 mg PO DAILY 08/07/13 01/15/19 Multivitamins, Thera [Multivitamin 1 tab PO DAILY 08/28/13 01/15/19 (formulary)] Insulin Detemir (Levemir) [Levemir] 64 unit SQ BID 10/02/13 01/15/19 Albuterol Inhaler [Ventolin Hfa 1 - 2 puff INHALATION Q4HR PRN 09/29/15 01/15/19 Inhaler] Clopidogrel [Plavix] 75 mg PO HS 09/29/15 01/15/19 Fludrocortisone [Florinef] 0.1 mg PO QAM 09/29/15 01/15/19 Lisinopril [Prinivil] 10 mg PO DAILY 09/29/15 01/15/19 Oxybutynin Chloride [Ditropan] 5 mg PO BID 09/29/15 01/15/19 Apixaban [Eliquis] 5 mg PO BID 07/06/16 01/15/19 Insulin Aspart [NovoLOG Flexpen] 0 units SQ TID-W/MEALS 02/20/17 01/15/19 Metoprolol Tartrate [Lopressor] 50 mg PO BID 02/20/17 01/15/19 Midodrine HCl [ProAmatine] 2.5 mg PO TID 02/20/17 01/15/19 Ranitidine HCl [Zantac] 150 mg PO BID 02/20/17 01/15/19 lamoTRIgine [LaMICtal] 150 mg PO DAILY 02/20/17 01/15/19 Cholecalciferol [Vitamin D3 (25 50,000 unit PO WEEKLY 07/30/17 01/15/19 Mcg = 1000 Iu)] DULoxetine HCL [Cymbalta] 60 mg PO DAILY 07/30/17 01/15/19 Baclofen [Lioresal] 20 mg PO TID 12/11/18 01/15/19 Exenatide Microspheres [Bydureon 2 mg SQ WEEKLY 12/11/18 01/15/19 Pen] Gabapentin [Neurontin] 300 mg PO BID 12/11/18 01/15/19 Potassium 99 mg PO DAILY 12/11/18 01/15/19 Sucralfate [Carafate] 1 gm PO TID 12/11/18 01/15/19 lamoTRIgine [LaMICtal Odt] 200 mg PO HS 12/11/18 01/15/19 Omeprazole 40 mg PO DAILY 12/12/18 01/15/19 Previous Rx's Medication Instructions Recorded hydrALAZINE HCL 10 mg PO TID #30 tablet 12/20/18 Ondansetron Odt [Zofran Odt] 4 mg PO Q8HR PRN #10 tab 02/08/19 Allergies Allergy/AdvReac Type Severity Reaction Status Date / Time adhesive Allergy HIVES/blist Verified 02/08/19 18:13 ers aspirin Allergy THINS Verified 02/08/19 18:13 BLOOD TOO MUCH morphine Allergy Nausea Verified 02/08/19 18:13 paliperidone [From Invega] Allergy Unknown Verified 02/08/19 18:13 Sulfa (Sulfonamide Allergy depresiion,suicidal Verified 02/08/19 18:13 Antibiotics) tendency ziprasidone HCl [From Geodon] Allergy SUICIDAL Verified 02/08/19 18:13 TENDENCY ziprasidone mesylate Allergy SUICIDAL Verified 02/08/19 18:13 [From Geodon] TENDENCY BANDAIDS Allergy Hives/BLIST Uncoded 02/08/19 18:13 ERS Review of Systems ROS Statement: Those systems with pertinent positive or pertinent negative responses have been documented in the HPI. ROS Other: All systems not noted in ROS Statement are negative. Past Medical History Past Medical History: Asthma, Cancer, CVA/TIA, Diabetes Mellitus, Fibromyalgia, GERD/Reflux, Musculoskeletal Disorder, Osteoarthritis (OA), Seizure Disorder Additional Past Medical History / Comment(s): back pain, lower extremity edema, diverticulitis, irrit bowel, hemorrhoids, colitis. Cervical ca 1984., lymphadema, neuropathy, iritis. Pt states her Dr thinks she has diab type 1., chronic pain in legs, History of Any Multi-Drug Resistant Organisms: None Reported Past Surgical History: Adenoidectomy, Bariatric Surgery, Cholecystectomy, Heart Catheterization, Hysterectomy, Tonsillectomy Additional Past Surgical History / Comment(s): colonoscopy, carpul tunnel bilateral, sleeve 06/09/13, partial hysterectomy, hemmroidectomy, bladder sling, cholecystectomy 2011, right eye replaced lens and removed cataracts Past Anesthesia/Blood Transfusion Reactions: No Reported Reaction Type of Cardiac Device: Permanent Pacemaker Device Placement Date:: 06/2015 Past Psychological History: Anxiety, Bipolar, PTSD Smoking Status: Current every day smoker Past Alcohol Use History: Occasional Past Drug Use History: Marijuana - Past Family History Mother Family Medical History: Unable to Obtain General Exam Limitations: no limitations General appearance: alert, in no apparent distress Head exam: Present: atraumatic, normocephalic Eye exam: Present: normal appearance, EOMI ENT exam: Present: mucous membranes dry Neck exam: Present: other (Trachea is in midline) Respiratory exam: Present: normal lung sounds bilaterally. Absent: respiratory distress, wheezes, rales, rhonchi Cardiovascular Exam: Present: regular rate, normal rhythm, normal heart sounds, other (Normal radial pulses bilaterally) GI/Abdominal exam: Present: soft, other (Moderate epigastric tenderness). Absent: distended, guarding, rebound Extremities exam: Absent: tenderness, pedal edema, calf tenderness Neurological exam: Present: alert, oriented X3. Absent: motor sensory deficit Psychiatric exam: Present: normal affect, normal mood Skin exam: Present: warm, dry, intact, normal color Course Vital Signs 02/08/19 02/08/19 18:09 20:21 Temperature 98.0 F Pulse Rate 92 84 Respiratory 20 18 Rate Blood Pressure 136/93 162/90 O2 Sat by Pulse 98 94 L Oximetry - Reevaluation(s) Reevaluation #1: 02/08/19 21:10 Case, H&P, test results/CT report and ED management were discussed with Dr. England (general surgery). He recommends discharging the patient home if she is able to tolerate oral intake in the ED. Otherwise, he states that he will admit the patient to the hospital. He has no further recommendations at this time. 02/08/19 21:42 Patient was able to drink and keep down an entire glass of water in the ED without any vomiting. Patient and family are aware of the patient's test results and my discussion with Dr. England as above. Patient states that she wishes to go home with her family at this time, and she declines hospital admission. She was counseled about abdominal pain and vomiting, and she was clearly explained return and follow-up instructions. She feels comfortable with this plan. Medical Decision Making - Medical Decision Making Patient is afebrile and with very mild leukocytosis. Patient's CT abdomen and pelvis is only positive for possible enteritis, but is otherwise negative. Patient's abdomen is soft and without any surgical signs on exam. Patient wishes to go home with her family at this time. I do not feel that the patient's symptoms are from a surgical or emergent condition. Will discharge patient home with her family at this time. - Lab Data Result diagrams: 02/08/19 18:32 02/08/19 18:32 Lab Results 02/08/19 02/08/19 02/08/19 Range/Units 18:32 18:32 18:32 WBC 11.8 H (3.8-10.6) k/uL RBC 6.06 H (3.80-5.40) m/uL Hgb 17.9 H (11.4-16.0) gm/dL Hct 53.0 H (34.0-46.0) % MCV 87.5 (80.0-100.0) fL MCH 29.6 (25.0-35.0) pg MCHC 33.8 (31.0-37.0) g/dL RDW 13.5 (11.5-15.5) % Plt Count 163 (150-450) k/uL Neutrophils % 74 % Lymphocytes % 17 % Monocytes % 4 % Eosinophils % 2 % Basophils % 1 % Neutrophils # 8.7 H (1.3-7.7) k/uL Lymphocytes # 2.0 (1.0-4.8) k/uL Monocytes # 0.5 (0-1.0) k/uL Eosinophils # 0.3 (0-0.7) k/uL Basophils # 0.2 (0-0.2) k/uL Sodium 139 (137-145) mmol/L Potassium 4.0 (3.5-5.1) mmol/L Chloride 105 (98-107) mmol/L Carbon Dioxide 24 (22-30) mmol/L Anion Gap 10 mmol/L BUN 10 (7-17) mg/dL Creatinine 0.67 (0.52-1.04) mg/dL Est GFR (CKD-EPI)AfAm >90 (>60 ml/min/1.73 sqM) Est GFR (CKD-EPI)NonAf >90 (>60 ml/min/1.73 sqM) Glucose 109 H (74-99) mg/dL Plasma Lactic Acid Otto 0.9 (0.7-2.0) mmol/L Calcium 10.0 (8.4-10.2) mg/dL Total Bilirubin 0.8 (0.2-1.3) mg/dL AST 19 (14-36) U/L ALT 12 (4-34) U/L Alkaline Phosphatase 69 (38-126) U/L Total Protein 7.3 (6.3-8.2) g/dL Albumin 4.6 (3.5-5.0) g/dL Lipase 84 (23-300) U/L - Radiology Data Radiology results: report reviewed (CT abdomen and pelvis with IV contrast shows "correlate for enteritis") Disposition Clinical Impression: Abdominal pain, Nausea and vomiting Disposition: HOME SELF-CARE Condition: Stable Instructions (If sedation given, give patient instructions): Abdominal Pain (ED), Acute Nausea and Vomiting (ED) Additional Instructions: Return to the ER immediately should you develop new or worsening pain, persistent vomiting, a fever, feeling dizzy or faint, shortness of breath, or new or worsening symptoms. Follow up closely with your primary care provider. Prescriptions: Ondansetron Odt [Zofran Odt] 4 mg PO Q8HR PRN #10 tab PRN Reason: Nausea Is patient prescribed a controlled substance at d/c from ED?: No Referrals: Dawit Canales MD [Primary Care Provider] - 1-2 days Lola Villatoro MD [STAFF PHYSICIAN] - 1-2 days Time of Disposition: 21:48
[2019-02-08] MEDS ORDERED: HYDROmorphone 1 MG/ML 1 ML SYRINGE IVP STA ×2 (18:26→20:14)
[2019-02-08] MEDS ORDERED: SODIUM CHLORIDE 0.9% 1,000 ML IV STA (18:26)
[2019-02-08] MEDS ORDERED: ONDANSETRON 4 MG/2 ML VIAL IVP STA (18:27)
[2019-02-08 18:55] LABS: Basophils # (A) 0.2 k/uL (0-0.2); Basophils % (A) 1 %; Eosinophils # (A) 0.3 k/uL (0-0.7); Eosinophils % (A) 2 %; HGB 17.9 gm/dL (11.4-16.0); Lymphocytes % (A) 17 %; MCH 29.6 pg (25.0-35.0); MCHC 33.8 g/dL (31.0-37.0); MCV 87.5 fL (80.0-100.0); Mean Platelet Volume 9.3; Monocytes # (A) 0.5 k/uL (0-1.0); Monocytes % (A) 4 %; Neutrophils # (A) 8.7 k/uL (1.3-7.7); Neutrophils % (A) 74 %; Platelet Count 163 k/uL (150-450); RBC 6.06 m/uL (3.80-5.40); RDW 13.5 % (11.5-15.5); WBC 11.8 k/uL (3.8-10.6)
[2019-02-08 19:07] LABS: ALT 12 U/L (4-34); AST 19 U/L (14-36); African American GFR (CKD) >90 (>60 ml/min/1.73 sqM); Albumin 4.6 g/dL (3.5-5.0); Alkaline Phosphatase 69 U/L (38-126); Anion Gap 10 mmol/L; Blood Urea Nitrogen 10 mg/dL (7-17); Carbon Dioxide 24 mmol/L (22-30); Chloride 105 mmol/L (98-107); Glucose 109 mg/dL (74-99); Non-African American GFR(CKD) >90 (>60 ml/min/1.73 sqM); Sodium 139 mmol/L (137-145); Total Bilirubin 0.8 mg/dL (0.2-1.3); Total Protein 7.3 g/dL (6.3-8.2)
--- NOTE | 2019-02-08 20:17 | CT ---
EXAMINATION TYPE: CT abdomen pelvis w con DATE OF EXAM: 02/08/2019 COMPARISON: CT 07/08/2018 HISTORY: Abdominal pain and vomiting. CT DLP: 1465.4 mGycm Automated exposure control for dose reduction was used. TECHNIQUE: Helical acquisition of images from the lung bases through the pelvis have been completed. CONTRAST: Performed without Oral Contrast and with IV Contrast, patient injected with 100 mL of Isovue 300. FINDINGS: Intracardiac defibrillator lead present. Postop changes are noted at the gastroesophageal j unction and stomach. LUNG BASES: No significant abnormality is appreciated. AORTA: No significant abnormality is appreciated. LIVER/GB: Liver shows low attenuation and is enlarged. Patient is post cholecystectomy. Couple of pun ctate calcifications present in the right lobe of the liver. PANCREAS: No significant abnormality is seen. SPLEEN: Calcifications are scattered within the spleen ADRENALS: No significant interval change is seen. KIDNEYS: No significant interval change is seen. REPRODUCTIVE ORGANS: No significant abnormality is seen BOWEL: Small bowel loops show some wall thickening.. FREE AIR: No Free Air visible. ASCITES: None visible. PELVIC ADENOPATHY: None visualized. RETROPERITONEAL ADENOPATHY: No Retroperitoneal Adenopathy visible. URINARY BLADDER: No significant abnormality is seen. OSSEOUS STRUCTURES: Degenerative disc changes are present in the visualized spine, loss of disc heig ht and vacuum phenomenon L5-S1 with posterior disc bulges also noted in the lumbar spine.. IMPRESSION: CORRELATE FOR ENTERITIS. ADDITIONAL FINDINGS ABOVE.
[2019-02-08 20:22] VITALS: RESP 18
[2019-02-08 21:44] VITALS: BP 152/100; PULSE 80; TEMP 98
[2019-02-08] MEDS ORDERED: ONDANSETRON 4 MG TAB PO STA (22:00)
== END 2019-02-08 22:07 | disposition home or self-care (01) ==
LOC: EC 17:54
DX: R10.13 Epigastric pain (principal); R11.2 Nausea with vomiting, unspecified; D72.829 Elevated white blood cell count, unspecified; J45.909 Unspecified asthma, uncomplicated; E11.40 Type 2 diabetes mellitus with diabetic neuropathy, unspecified; M79.7 Fibromyalgia; K21.9 Gastro-esophageal reflux disease without esophagitis; M19.90 Unspecified osteoarthritis, unspecified site; G40.909 Epilepsy, unspecified, not intractable, without status epilepticus; F31.9 Bipolar disorder, unspecified; F41.9 Anxiety disorder, unspecified; F43.10 Post-traumatic stress disorder, unspecified; F17.200 Nicotine dependence, unspecified, uncomplicated; Z88.2 Allergy status to sulfonamides; Z88.5 Allergy status to narcotic agent; Z88.6 Allergy status to analgesic agent; Z88.8 Allergy status to other drugs, medicaments and biological substances; Z91.048 Other nonmedicinal substance allergy status; Z79.01 Long term (current) use of anticoagulants; Z79.02 Long term (current) use of antithrombotics/antiplatelets; Z79.4 Long term (current) use of insulin; Z79.52 Long term (current) use of systemic steroids; Z79.899 Other long term (current) drug therapy; Z85.41 Personal history of malignant neoplasm of cervix uteri; Z90.710 Acquired absence of both cervix and uterus; Z86.73 Personal history of transient ischemic attack (TIA), and cerebral infarction without residual deficits; Z90.49 Acquired absence of other specified parts of digestive tract; Z98.84 Bariatric surgery status
CPT/HCPCS: 36415; 80053; 83605; 83690; 85025; 74177; 99284; 96374; 96375; 96376; 96361 ×2; J2405; J1170; Q9967

== ENCOUNTER 2019-02-17 07:07 | Day surgery (SDC) | payer MEDICARE, OTHER ==
[2019-02-14 11:09] VITALS: BMI 30.6
--- NOTE | 2019-02-16 23:07 | P.GSHP ---
History of Present Illness H&P Date: 02/17/19 CHIEF COMPLAINT: GERD HISTORY OF PRESENT ILLNESS: The patient is a 58-year-old female who presents reports gastroesophageal reflux disease. Upper endoscopy was offered for further evaluation and management. PAST MEDICAL HISTORY: Please see list. PAST SURGICAL HISTORY: Please see list. MEDICATIONS: Please see list. ALLERGIES: Please see list. SOCIAL HISTORY: No illicit drug use FAMILY HISTORY: No reports of Crohn disease or ulcerative colitis. REVIEW OF ORGAN SYSTEMS: CONSTITUTIONAL: No reports of fevers or chills. GI: Denies any blood in stools or constipation. PHYSICAL EXAM: VITAL SIGNS: Stable GENERAL: Well-developed and pleasant in no acute distress. HEENT: No scleral icterus. Extraocular movements grossly intact. Moist buccal mucosa. NECK: Supple without lymphadenopathy. CHEST: Unlabored respirations. Equal bilateral excursions. CARDIOVASCULAR: Regular rate and rhythm. Distal 2+ pulses. ABDOMEN: Soft, nondistended. MUSCULOSKELETAL: No clubbing, cyanosis, or edema. ASSESSMENT: 1. Gastroesophageal reflux disease PLAN: 1. Recommend proceeding with an upper endoscopy Past Medical History Past Medical History: Asthma, Cancer, CVA/TIA, Diabetes Mellitus, Fibromyalgia, GERD/Reflux, Hypertension, Musculoskeletal Disorder, Osteoarthritis (OA), Seizure Disorder Additional Past Medical History / Comment(s): back pain, lower extremity edema, diverticulitis, irrit bowel, hemorrhoids, colitis. Cervical ca 1984., lymphadema, neuropathy, narcolepsy, iritis. chronic pain in legs, abd. pain, N/V recently History of Any Multi-Drug Resistant Organisms: None Reported Past Surgical History: Adenoidectomy, Bariatric Surgery, Cholecystectomy, Heart Catheterization, Hysterectomy, Pacemaker, Tonsillectomy Additional Past Surgical History / Comment(s): colonoscopy, carpul tunnel bilateral, sleeve 06/09/13, hemorroidectomy, bladder sling, cholecystectomy 2011, right eye replaced lens and removed cataracts Past Anesthesia/Blood Transfusion Reactions: No Reported Reaction Type of Cardiac Device: Permanent Pacemaker Device Placement Date:: 2015 Smoking Status: Current every day smoker - Past Family History Mother Family Medical History: Unable to Obtain Medications and Allergies Home Medications Medication Instructions Recorded Confirmed Type ARIPiprazole [Abilify] 15 mg PO DAILY 08/07/13 02/14/19 History Insulin Detemir (Levemir) [Levemir] 60 unit SQ HS 10/02/13 02/14/19 History Albuterol Inhaler [Ventolin Hfa 1 - 2 puff INHALATION Q4HR PRN 09/29/15 02/14/19 History Inhaler] Clopidogrel [Plavix] 75 mg PO HS 09/29/15 02/14/19 History Fludrocortisone [Florinef] 0.1 mg PO QAM 09/29/15 02/14/19 History Lisinopril [Prinivil] 10 mg PO DAILY 09/29/15 02/14/19 History Oxybutynin Chloride [Ditropan] 5 mg PO BID 09/29/15 02/14/19 History Apixaban [Eliquis] 5 mg PO BID 07/06/16 02/14/19 History Insulin Aspart [NovoLOG Flexpen] See Protocol SQ TID-W/MEALS 02/20/17 02/14/19 History Metoprolol Tartrate [Lopressor] 50 mg PO BID 02/20/17 02/14/19 History Midodrine HCl [ProAmatine] 2.5 mg PO TID 02/20/17 02/14/19 History lamoTRIgine [LaMICtal] 150 mg PO DAILY 02/20/17 02/14/19 History DULoxetine HCL [Cymbalta] 60 mg PO DAILY 07/30/17 02/14/19 History Exenatide Microspheres [Bydureon 2 mg SQ WEEKLY 12/11/18 02/14/19 History Pen] Gabapentin [Neurontin] 300 mg PO BID 12/11/18 02/14/19 History Sucralfate [Carafate] 1 gm PO TID 12/11/18 02/14/19 History lamoTRIgine [LaMICtal Odt] 200 mg PO HS 12/11/18 02/14/19 History Omeprazole 40 mg PO DAILY 12/12/18 02/14/19 History Ondansetron Odt [Zofran Odt] 4 mg PO Q8HR PRN #10 tab 02/08/19 02/14/19 Rx Atorvastatin Calcium [Lipitor] 80 mg PO DAILY 02/14/19 02/14/19 History Allergies Allergy/AdvReac Type Severity Reaction Status Date / Time adhesive Allergy HIVES/blist Verified 02/14/19 09:50 ers aspirin Allergy THINS Verified 02/14/19 09:50 BLOOD TOO MUCH morphine Allergy Nausea Verified 02/14/19 09:50 paliperidone [From Invega] Allergy Unknown Verified 02/14/19 09:50 Sulfa (Sulfonamide Allergy depresiion,suicidal Verified 02/14/19 09:50 Antibiotics) tendency ziprasidone HCl [From Geodon] Allergy SUICIDAL Verified 02/14/19 09:50 TENDENCY ziprasidone mesylate Allergy SUICIDAL Verified 02/14/19 09:50 [From Geodon] TENDENCY BANDAIDS Allergy Hives/BLIST Uncoded 02/14/19 09:50 ERS
[~2019-02-17 07:07] MED LIST changes: -HYDROCHLOROTHIAZIDE 25 MG TAB PO SCH; +LACTATED RINGERS 1,000 ML IV SCH; -LISINOPRIL 10 MG TAB PO STA; -METOPROLOL TARTRATE 50 MG TAB PO STA; -MIDODRINE 5 MG TAB PO STA; -ONDANSETRON 4 MG/2 ML VIAL IVP STA; -PREMYELOGRAM MEDICATION REVIEW 1 EACH MISC PO NR; -amLODIPine 10 MG TAB PO SCH; -hydrALAZINE HCL 20 MG/ML 1 ML VIAL IVP STA
[2019-02-17 07:47] VITALS: RESP 16; TEMP 98.5
[2019-02-17 07:52] LABS: Glucose,Whole Blood 113 mg/dL (75-99)
[2019-02-17] MEDS ORDERED: LIDOCAINE 1% INJ 10MG/ML (20 ML MDV) ONE (08:05)
[2019-02-17] MEDS ORDERED: PROPOFOL 10 MG/ML 20 ML VIAL IV ONE (08:05)
--- NOTE | 2019-02-17 08:22 | P.PCN ---
Date of Procedure: 02/17/19 Description of Procedure: PREOPERATIVE DIAGNOSIS: Status post sleeve gastrectomy. Gastroesophageal reflux disease. Epigastric abdominal pain. POSTOPERATIVE DIAGNOSIS: Status post sleeve gastrectomy. Gastroesophageal reflux disease. Epigastric abdominal pain. Gastroparesis OPERATION: Esophagogastroduodenoscopy SURGEON: Lola Villatoro MD ANESTHESIA: MAC. INDICATIONS: The patient is a 58-year-old female who presents with a history of sleeve gastrectomy with abdominal pain. She is over 5 years out from her bariatric procedure. Benefits and risks of the procedure were described. Informed consent was obtained. DESCRIPTION: The patient was brought into the endoscopy suite and laid in the left lateral decubitus position. An Olympus gastroscope was passed along the posterior oropharynx down to the distal esophagus where the squamocolumnar junction was at 41 centimeters from the incisors remarkable for chronic erosive esophagitis, LA grade A without ulceration. The stomach was entered. The sleeve reservoir had moderate retained food suspicious for gastroparesis. No corkscrewing or stric ture at the angularis incisura was identified. The first through third portion of the duodenum was examined and unremarkable. The stomach was desufflated. The patient tolerated the procedure well. FINDINGS: No acute ulceration found along her sleeve. No corkscrewing sleeve gastrectomy. Adequate size gastric reservoir with prior history of sleeve gastrectomy Moderate retained food suspicious for gastroparesis LA grade A erosive esophagitis. No active duodenitis. Chronic gastritis. RECOMMENDATIONS: Upper endoscopy as needed. Recommending gastric emptying study Revision to gastric bypass for gastroparesis may be evaluated Plan - Discharge Summary Discharge Rx Participant: No New Discharge Prescriptions: No Action ARIPiprazole [Abilify] 15 mg PO DAILY Insulin Detemir (Levemir) [Levemir] 60 unit SQ HS Albuterol Inhaler [Ventolin Hfa Inhaler] 1 - 2 puff INHALATION Q4HR PRN PRN Reason: Shortness Of Breath Oxybutynin Chloride [Ditropan] 5 mg PO BID Lisinopril [Prinivil] 10 mg PO DAILY Clopidogrel [Plavix] 75 mg PO HS Fludrocortisone [Florinef] 0.1 mg PO QAM Apixaban [Eliquis] 5 mg PO BID Insulin Aspart [NovoLOG Flexpen] See Protocol SQ TID-W/MEALS Midodrine HCl [ProAmatine] 2.5 mg PO TID Metoprolol Tartrate [Lopressor] 50 mg PO BID lamoTRIgine [LaMICtal] 150 mg PO DAILY DULoxetine HCL [Cymbalta] 60 mg PO DAILY Exenatide Microspheres [Bydureon Pen] 2 mg SQ WEEKLY Gabapentin [Neurontin] 300 mg PO BID Sucralfate [Carafate] 1 gm PO TID lamoTRIgine [LaMICtal Odt] 200 mg PO HS Omeprazole 40 mg PO DAILY Ondansetron Odt [Zofran Odt] 4 mg PO Q8HR PRN #10 tab PRN Reason: Nausea Atorvastatin Calcium [Lipitor] 80 mg PO DAILY Discharge Medication List ARIPiprazole [Abilify] 15 mg PO DAILY 08/07/13 [History] Insulin Detemir (Levemir) [Levemir] 60 unit SQ HS 10/02/13 [History] Albuterol Inhaler [Ventolin Hfa Inhaler] 1 - 2 puff INHALATION Q4HR PRN 09/29/15 [History] Clopidogrel [Plavix] 75 mg PO HS 09/29/15 [History] Fludrocortisone [Florinef] 0.1 mg PO QAM 09/29/15 [History] Lisinopril [Prinivil] 10 mg PO DAILY 09/29/15 [History] Oxybutynin Chloride [Ditropan] 5 mg PO BID 09/29/15 [History] Apixaban [Eliquis] 5 mg PO BID 07/06/16 [History] Insulin Aspart [NovoLOG Flexpen] See Protocol SQ TID-W/MEALS 02/20/17 [History] Metoprolol Tartrate [Lopressor] 50 mg PO BID 02/20/17 [History] Midodrine HCl [ProAmatine] 2.5 mg PO TID 02/20/17 [History] lamoTRIgine [LaMICtal] 150 mg PO DAILY 02/20/17 [History] DULoxetine HCL [Cymbalta] 60 mg PO DAILY 07/30/17 [History] Exenatide Microspheres [Bydureon Pen] 2 mg SQ WEEKLY 12/11/18 [History] Gabapentin [Neurontin] 300 mg PO BID 12/11/18 [History] Sucralfate [Carafate] 1 gm PO TID 12/11/18 [History] lamoTRIgine [LaMICtal Odt] 200 mg PO HS 12/11/18 [History] Omeprazole 40 mg PO DAILY 12/12/18 [History] Ondansetron Odt [Zofran Odt] 4 mg PO Q8HR PRN #10 tab 02/08/19 [Rx] Atorvastatin Calcium [Lipitor] 80 mg PO DAILY 02/14/19 [History] [facility] [place] [facility] Patient Instructions/Handouts: Gastroesophageal Reflux Disease (DC), Gastroparesis (DC) Discharge Disposition: HOME SELF-CARE
[2019-02-17 08:31] LABS: Glucose,Whole Blood 112 mg/dL (75-99)
[2019-02-17 08:53] VITALS: BP 149/88; PULSE 64
== END 2019-02-17 09:37 | disposition home or self-care (01) ==
LOC: ORWHC2ENDO 07:07
PROVIDERS: ATTEND Surgery Plastic and Reconstructive Surgery
DX: K21.0 Gastro-esophageal reflux disease with esophagitis (principal); K22.10 Ulcer of esophagus without bleeding; K31.84 Gastroparesis; Z98.84 Bariatric surgery status; K29.50 Unspecified chronic gastritis without bleeding; I10 Essential (primary) hypertension; J45.909 Unspecified asthma, uncomplicated; G47.33 Obstructive sleep apnea (adult) (pediatric); F17.210 Nicotine dependence, cigarettes, uncomplicated; E11.9 Type 2 diabetes mellitus without complications; M19.90 Unspecified osteoarthritis, unspecified site; F41.9 Anxiety disorder, unspecified; F31.9 Bipolar disorder, unspecified; M79.7 Fibromyalgia; K58.9 Irritable bowel syndrome, unspecified; F43.10 Post-traumatic stress disorder, unspecified; E11.21 Type 2 diabetes mellitus with diabetic nephropathy; I69.351 Hemiplegia and hemiparesis following cerebral infarction affecting right dominant side; I69.354 Hemiplegia and hemiparesis following cerebral infarction affecting left non-dominant side; Z79.4 Long term (current) use of insulin; Z79.01 Long term (current) use of anticoagulants; Z79.02 Long term (current) use of antithrombotics/antiplatelets; Z79.899 Other long term (current) drug therapy; Z88.2 Allergy status to sulfonamides; Z88.5 Allergy status to narcotic agent; Z88.6 Allergy status to analgesic agent; Z91.048 Other nonmedicinal substance allergy status; Z95.0 Presence of cardiac pacemaker; Z90.89 Acquired absence of other organs; G40.909 Epilepsy, unspecified, not intractable, without status epilepticus; G89.29 Other chronic pain; Z90.710 Acquired absence of both cervix and uterus; Z90.49 Acquired absence of other specified parts of digestive tract; Z85.41 Personal history of malignant neoplasm of cervix uteri; Z98.41 Cataract extraction status, right eye; Z96.1 Presence of intraocular lens
CPT/HCPCS: 43235; J2001; J2704

== ENCOUNTER 2019-03-07 16:55 | Emergency (ER) | payer MEDICARE, OTHER ==
[2019-03-07] MEDS ORDERED: LIDOCAINE 1%-EPI 1:100,000 20 ML VIAL SQ STA (17:11)
[2019-03-07] MEDS ORDERED: HYDROmorphone 1 MG/ML 1 ML SYRINGE IVP STA ×4 (17:19→17:38)
[2019-03-07 18:09] LABS: Basophils # (A) 0.1 k/uL (0-0.2); Basophils % (A) 1 %; Eosinophils # (A) 0.4 k/uL (0-0.7); Eosinophils % (A) 3 %; HCT 45.4 % (34.0-46.0); HGB 15.2 gm/dL (11.4-16.0); Lymphocytes # (A) 2.9 k/uL (1.0-4.8); Lymphocytes % (A) 25 %; MCH 29.7 pg (25.0-35.0); MCHC 33.4 g/dL (31.0-37.0); MCV 88.7 fL (80.0-100.0); Monocytes # (A) 0.4 k/uL (0-1.0); Monocytes % (A) 4 %; Neutrophils # (A) 7.8 k/uL (1.3-7.7); Neutrophils % (A) 66 %; Platelet Count 173 k/uL (150-450); RBC 5.12 m/uL (3.80-5.40); RDW 13.8 % (11.5-15.5); WBC 11.8 k/uL (3.8-10.6)
[2019-03-07 18:18] LABS: Chloride 112 mmol/L (98-107); Potassium 3.7 mmol/L (3.5-5.1); Sodium 140 mmol/L (137-145)
[2019-03-07 18:19] LABS: ALT 10 U/L (4-34); AST 15 U/L (14-36); African American GFR (CKD) >90 (>60 ml/min/1.73 sqM); Albumin 3.2 g/dL (3.5-5.0); Alkaline Phosphatase 51 U/L (38-126); Anion Gap 5 mmol/L; Blood Urea Nitrogen 8 mg/dL (7-17); Calcium 7.9 mg/dL (8.4-10.2); Carbon Dioxide 23 mmol/L (22-30); Glucose 131 mg/dL (74-99); Magnesium 1.6 mg/dL (1.6-2.3); Non-African American GFR(CKD) >90 (>60 ml/min/1.73 sqM); Total Bilirubin 0.6 mg/dL (0.2-1.3); Total Protein 5.5 g/dL (6.3-8.2)
[2019-03-07 18:27] LABS: Partial Thromboplastin Time 21.7 sec (22.0-30.0); Prothrombin Time 10.5 sec (9.0-12.0)
--- NOTE | 2019-03-07 18:54 | ED ---
General Adult HPI - General Chief complaint: Vaginal Bleeding Stated complaint: Constipation Time Seen by Provider: 03/07/19 16:56 Source: patient, EMS, RN notes reviewed Mode of arrival: EMS Limitations: no limitations - History of Present Illness Initial comments: 58-year-old female presented for evaluation of vaginal bleeding. Patient was a transfer from outside facility with vaginal bleeding after incision and drainage of reported vaginal cyst versus abscess. Patient had initially presented to an outside emergency department with chief complaint of constipation and vaginal cyst. She had been seen on multiple occasions regarding this cyst and was seeking additional evaluation. Second complaint was constipation which had been treated with enemas prior to arrival in this emergency department. Patient was on Plavix and Xarelto with history of CAD and CVA. She had discontinued Xarelto awaiting procedure at an outside facility. She has been off his medication for approximately 48 hours. After the incision and drainage in the right labia there was persistent oozing and bleeding and the patient was transferred for further evaluation and treatment. - Related Data Home Medications Medication Instructions Recorded Confirmed ARIPiprazole [Abilify] 15 mg PO DAILY 08/07/13 02/17/19 Insulin Detemir (Levemir) [Levemir] 60 unit SQ HS 10/02/13 02/17/19 Albuterol Inhaler [Ventolin Hfa 1 - 2 puff INHALATION Q4HR PRN 09/29/15 02/17/19 Inhaler] Clopidogrel [Plavix] 75 mg PO HS 09/29/15 02/14/19 Fludrocortisone [Florinef] 0.1 mg PO QAM 09/29/15 02/17/19 Lisinopril [Prinivil] 10 mg PO DAILY 09/29/15 02/17/19 Oxybutynin Chloride [Ditropan] 5 mg PO BID 09/29/15 02/17/19 Apixaban [Eliquis] 5 mg PO BID 07/06/16 02/14/19 Insulin Aspart [NovoLOG Flexpen] See Protocol SQ TID-W/MEALS 02/20/17 02/17/19 Metoprolol Tartrate [Lopressor] 50 mg PO BID 02/20/17 02/17/19 Midodrine HCl [ProAmatine] 2.5 mg PO TID 02/20/17 02/17/19 lamoTRIgine [LaMICtal] 150 mg PO DAILY 02/20/17 02/17/19 DULoxetine HCL [Cymbalta] 60 mg PO DAILY 07/30/17 02/17/19 Exenatide Microspheres [Bydureon 2 mg SQ WEEKLY 12/11/18 02/17/19 Pen] Gabapentin [Neurontin] 300 mg PO BID 12/11/18 02/17/19 Sucralfate [Carafate] 1 gm PO TID 12/11/18 02/17/19 lamoTRIgine [LaMICtal Odt] 200 mg PO HS 12/11/18 02/17/19 Omeprazole 40 mg PO DAILY 12/12/18 02/17/19 Atorvastatin Calcium [Lipitor] 80 mg PO DAILY 02/14/19 02/17/19 Previous Rx's Medication Instructions Recorded Ondansetron Odt [Zofran Odt] 4 mg PO Q8HR PRN #10 tab 02/08/19 Allergies Allergy/AdvReac Type Severity Reaction Status Date / Time adhesive Allergy HIVES/blist Verified 02/17/19 07:28 ers aspirin Allergy THINS Verified 02/17/19 07:28 BLOOD TOO MUCH morphine Allergy Nausea Verified 02/17/19 07:28 paliperidone [From Invega] Allergy Unknown Verified 02/17/19 07:28 Sulfa (Sulfonamide Allergy depresiion,suicidal Verified 02/17/19 07:28 Antibiotics) tendency ziprasidone HCl [From Geodon] Allergy SUICIDAL Verified 02/17/19 07:28 TENDENCY ziprasidone mesylate Allergy SUICIDAL Verified 02/17/19 07:28 [From Geodon] TENDENCY lidocaine AdvReac Rash/Hives Verified 02/17/19 07:28 BANDAIDS Allergy Hives/BLIST Uncoded 02/17/19 07:28 ERS Review of Systems ROS Statement: Those systems with pertinent positive or pertinent negative responses have been documented in the HPI. ROS Other: All systems not noted in ROS Statement are negative. Past Medical History Past Medical History: Asthma, Cancer, CVA/TIA, Diabetes Mellitus, Fibromyalgia, GERD/Reflux, Hypertension, Musculoskeletal Disorder, Osteoarthritis (OA), Seizure Disorder Additional Past Medical History / Comment(s): back pain, lower extremity edema, diverticulitis, irrit bowel, hemorrhoids, colitis. Cervical ca 1984., lymphadema, neuropathy, narcolepsy, iritis. chronic pain in legs, abd. pain, N/V recently History of Any Multi-Drug Resistant Organisms: None Reported Past Surgical History: Adenoidectomy, Bariatric Surgery, Cholecystectomy, Heart Catheterization, Hysterectomy, Pacemaker, Tonsillectomy Additional Past Surgical History / Comment(s): colonoscopy, carpul tunnel bilateral, sleeve 06/09/13, hemorroidectomy, bladder sling, cholecystectomy 2011, right eye replaced lens and removed cataracts Past Anesthesia/Blood Transfusion Reactions: No Reported Reaction Type of Cardiac Device: Permanent Pacemaker Device Placement Date:: 2015 Past Psychological History: Anxiety, Bipolar, PTSD Smoking Status: Current every day smoker Past Alcohol Use History: Rare Past Drug Use History: Marijuana - Past Family History Mother Family Medical History: Unable to Obtain General Exam Limitations: no limitations General appearance: alert, in no apparent distress Head exam: Present: atraumatic, normocephalic Eye exam: Present: normal appearance, PERRL ENT exam: Present: normal exam Neck exam: Present: normal inspection. Absent: tenderness, meningismus Respiratory exam: Present: normal lung sounds bilaterally. Absent: respiratory distress, wheezes Cardiovascular Exam: Present: regular rate, normal rhythm GI/Abdominal exam: Present: soft. Absent: distended, tenderness Rectal exam: Present: normal inspection, normal rectal tone External exam: Present: lacerations, ecchymosis Speculum exam: Present: vaginal bleeding, laceration Extremities exam: Present: full ROM. Absent: tenderness Back exam: Present: normal inspection, full ROM Neurological exam: Present: alert, oriented X3, CN II-XII intact. Absent: motor sensory deficit Psychiatric exam: Present: normal affect, normal mood Skin exam: Present: warm, dry, intact. Absent: cyanosis, diaphoretic Course Vital Signs 03/07/19 03/07/19 17:15 18:58 Temperature 98.7 F 98.7 F Pulse Rate 98 98 Respiratory 18 18 Rate Blood Pressure 141/114 137/104 O2 Sat by Pulse 92 L 93 L Oximetry Procedures - Laceration Laceration #1 Consent Obtained: verbal consent Indication: laceration Site: vulva/vagina Description: stellate Depth: arterial injury Anesthetic Used: lidocaine 1%, with epi Anesthesia Technique: local infiltration Amount (mls): 8 Pre-repair: wound explored, irrigated extensively Type of Sutures: nylon Size of Sutures: 3-0 Number of Sutures: 3 Technique: simple, interrupted Complications: bleeding Patient Tolerated Procedure: well Medical Decision Making - Medical Decision Making 58-year-old female presenting with vaginal bleeding after an incision and drainage of cyst versus abscess. Patient transported by EMS with stable vitals. At the time my initial evaluation she had significant bleeding from the vaginal region. Several large clots and fully saturated packing and diaper. I did remove all packing, he irrigated copiously both the vagina, perineum and rectum. There was a 2 cm open laceration on the right side of the labia inferiorly. This had active hemorrhage. I applied direct pressure and injected with lidocai ne with epinephrine. This did improve hemostasis, this was followed by 3 large 3-0 nylon sutures. This did complete hemorrhage control. Hemoglobin was drawn as well as type and screen given the amount of bleeding on examination, hemoglobin stable at 15.2 with stable vitals. I observed this chevy ent for several hours in the emergency department after the procedure. There was no further bleeding. I discussed the case with [employer] MACHINE OPERATOR on-call Dr. Guerra, felt that this may have been a vaginal varicosity that was inadvertently incised. I wanted to observe this patient for close monitoring as she is anticoagulated and there was significant bleeding, patient declines. She is very eager for discharge. She's observed for an additional period in the emergency department with no further bleeding. Her family is at the desk and are eager for immediate discharge. I gave strict return parameters including returning with any new bleeding in this region. Development of lightheadedness, dyspnea, any other new symptoms. Patient and family are eager for discharge and agreeable to return with any of these issues. They will follow up with B[employer] CLE[employer] MACHINE OPERATOR for suture removal. - Lab Data Result diagrams: 03/07/19 18:00 03/07/19 18:00 Lab Results 03/07/19 03/07/19 03/07/19 Range/Units 17:55 18:00 18:00 WBC 11.8 H (3.8-10.6) k/uL RBC 5.12 (3.80-5.40) m/uL Hgb 15.2 (11.4-16.0) gm/dL Hct 45.4 (34.0-46.0) % MCV 88.7 (80.0-100.0) fL MCH 29.7 (25.0-35.0) pg MCHC 33.4 (31.0-37.0) g/dL RDW 13.8 (11.5-15.5) % Plt Count 173 (150-450) k/uL Neutrophils % 66 % Lymphocytes % 25 % Monocytes % 4 % Eosinophils % 3 % Basophils % 1 % Neutrophils # 7.8 H (1.3-7.7) k/uL Lymphocytes # 2.9 (1.0-4.8) k/uL Monocytes # 0.4 (0-1.0) k/uL Eosinophils # 0.4 (0-0.7) k/uL Basophils # 0.1 (0-0.2) k/uL PT (9.0-12.0) sec INR (<1.2) APTT (22.0-30.0) sec Sodium 140 (137-145) mmol/L Potassium 3.7 (3.5-5.1) mmol/L Chloride 112 H (98-107) mmol/L Carbon Dioxide 23 (22-30) mmol/L Anion Gap 5 mmol/L BUN 8 (7-17) mg/dL Creatinine 0.44 L (0.52-1.04) mg/dL Est GFR (CKD-EPI)AfAm >90 (>60 ml/min/1.73 sqM) Est GFR (CKD-EPI)NonAf >90 (>60 ml/min/1.73 sqM) Glucose 131 H (74-99) mg/dL Calcium 7.9 L (8.4-10.2) mg/dL Magnesium 1.6 (1.6-2.3) mg/dL Total Bilirubin 0.6 (0.2-1.3) mg/dL AST 15 (14-36) U/L ALT 10 (4-34) U/L Alkaline Phosphatase 51 (38-126) U/L Total Protein 5.5 L (6.3-8.2) g/dL Albumin 3.2 L (3.5-5.0) g/dL Blood Type Blood Type Confirm B Positive Blood Type Recheck Bld Type Recheck Status Antibody Screen Spec Expiration Date 03/07/19 03/07/19 Range/Units 18:00 18:05 WBC (3.8-10.6) k/uL RBC (3.80-5.40) m/uL Hgb (11.4-16.0) gm/dL Hct (34.0-46.0) % MCV (80.0-100.0) fL MCH (25.0-35.0) pg MCHC (31.0-37.0) g/dL RDW (11.5-15.5) % Plt Count (150-450) k/uL Neutrophils % % Lymphocytes % % Monocytes % % Eosinophils % % Basophils % % Neutrophils # (1.3-7.7) k/uL Lymphocytes # (1.0-4.8) k/uL Monocytes # (0-1.0) k/uL Eosinophils # (0-0.7) k/uL Basophils # (0-0.2) k/uL PT 10.5 (9.0-12.0) sec INR 1.0 (<1.2) APTT 21.7 L (22.0-30.0) sec Sodium (137-145) mmol/L Potassium (3.5-5.1) mmol/L Chloride (98-107) mmol/L Carbon Dioxide (22-30) mmol/L Anion Gap mmol/L BUN (7-17) mg/dL Creatinine (0.52-1.04) mg/dL Est GFR (CKD-EPI)AfAm (>60 ml/min/1.73 sqM) Est GFR (CKD-EPI)NonAf (>60 ml/min/1.73 sqM) Glucose (74-99) mg/dL Calcium (8.4-10.2) mg/dL Magnesium (1.6-2.3) mg/dL Total Bilirubin (0.2-1.3) mg/dL AST (14-36) U/L ALT (4-34) U/L Alkaline Phosphatase (38-126) U/L Total Protein (6.3-8.2) g/dL Albumin (3.5-5.0) g/dL Blood Type B Positive Blood Type Confirm Blood Type Recheck No Previous Record Bld Type Recheck Status CABO Indicated Antibody Screen NEGATIVE Spec Expiration Date 03/10/2019 - 2299 Disposition Clinical Impression: Vaginal bleeding, Vaginal laceration Disposition: HOME SELF-CARE Condition: Fair Instructions (If sedation given, give patient instructions): Laceration (ED), Anterior Vaginal Repair (DC) Additional Instructions: Please monitor closely for any vaginal bleeding, please be present with any vaginal bleeding, development of lightheadedness or dizziness, any new or veliz ging symptoms. Please follow up with the furniture polisher for suture removal. Is patient prescribed a controlled substance at d/c from ED?: No Referrals: Dawit Canales MD [Primary Care Provider] - 1-2 days Ariana Guerra MD [STAFF PHYSICIAN] - 1-2 days Time of Disposition: 18:53
[2019-03-07 20:16] VITALS: BP 151/109; PULSE 56; RESP 16; TEMP 98
[2019-03-10] MEDS ORDERED: LIDOCAINE 1%-EPI 1:100,000 20 ML VIAL SQ STA (13:19)
== END 2019-03-07 19:39 | disposition home or self-care (01) ==
LOC: EC 16:55
DX: S31.41XA Laceration without foreign body of vagina and vulva, initial encounter (principal); K59.00 Constipation, unspecified; J45.909 Unspecified asthma, uncomplicated; M79.7 Fibromyalgia; K21.9 Gastro-esophageal reflux disease without esophagitis; I10 Essential (primary) hypertension; G40.909 Epilepsy, unspecified, not intractable, without status epilepticus; I25.10 Atherosclerotic heart disease of native coronary artery without angina pectoris; E11.40 Type 2 diabetes mellitus with diabetic neuropathy, unspecified; F41.9 Anxiety disorder, unspecified; F31.9 Bipolar disorder, unspecified; F43.10 Post-traumatic stress disorder, unspecified; F17.200 Nicotine dependence, unspecified, uncomplicated; Z86.73 Personal history of transient ischemic attack (TIA), and cerebral infarction without residual deficits; Z85.41 Personal history of malignant neoplasm of cervix uteri; Z98.84 Bariatric surgery status; Z90.49 Acquired absence of other specified parts of digestive tract; Z95.818 Presence of other cardiac implants and grafts; Z90.710 Acquired absence of both cervix and uterus; Z95.0 Presence of cardiac pacemaker; Z79.4 Long term (current) use of insulin; Z79.02 Long term (current) use of antithrombotics/antiplatelets; Z79.52 Long term (current) use of systemic steroids; Z79.01 Long term (current) use of anticoagulants; Z79.899 Other long term (current) drug therapy; Z91.048 Other nonmedicinal substance allergy status; Z88.6 Allergy status to analgesic agent; Z88.5 Allergy status to narcotic agent; Z88.8 Allergy status to other drugs, medicaments and biological substances; Z88.2 Allergy status to sulfonamides; Z88.4 Allergy status to anesthetic agent; Z98.890 Other specified postprocedural states; Z53.8 Procedure and treatment not carried out for other reasons
CPT/HCPCS: 36415; 86900; 86901; 80053; 83735; 85025; 85610; 85730; 86850; 99284; 12001; 96374; J1170

== ENCOUNTER → 2019-04-29 | Outpatient (CLI) | payer MEDICARE, OTHER ==
[2019-04-29 12:19] LABS: Partial Thromboplastin Time 25.7 sec (22.0-30.0); Prothrombin Time 10.1 sec (9.0-12.0)
[2019-04-29 12:21] LABS: Appearance,Urine Clear (Clear); Bilirubin,Urine Negative (Negative); Blood,Urine Trace (Negative); Color,Urine Yellow; Glucose,Urine (UA) 2+ (Negative); Ketones,Urine Negative (Negative); Leukocyte Esterase,Urine Negative (Negative); Mucus,Urine Rare /hpf; Nitrite,Urine Negative (Negative); Protein,Urine Negative (Negative); RBC,Urine 2 /hpf (0-5); Specific Gravity,Urine 1.017 (1.001-1.035); Squamous Epithelial Cell,Urine 1 /hpf (0-4); Urobilinogen,Urine <2.0 mg/dL (<2.0); WBC,Urine 1 /hpf (0-5)
[2019-04-29 12:26] LABS: HCT 46.9 % (34.0-46.0); HGB 14.7 gm/dL (11.4-16.0); Hypochromasia Slight; MCH 27.8 pg (25.0-35.0); MCHC 31.4 g/dL (31.0-37.0); MCV 88.4 fL (80.0-100.0); Mean Platelet Volume 8.7; Platelet Count 175 k/uL (150-450); RBC 5.31 m/uL (3.80-5.40); RDW 13.4 % (11.5-15.5)
[2019-04-29 12:43] LABS: ALT 12 U/L (4-34); AST 17 U/L (14-36); African American GFR (CKD) >90 (>60 ml/min/1.73 sqM); Alkaline Phosphatase 81 U/L (38-126); Anion Gap 10 mmol/L; Blood Urea Nitrogen 14 mg/dL (7-17); Carbon Dioxide 25 mmol/L (22-30); Chloride 102 mmol/L (98-107); Glucose 210 mg/dL (74-99); Non-African American GFR(CKD) >90 (>60 ml/min/1.73 sqM); Potassium 3.9 mmol/L (3.5-5.1); Sodium 137 mmol/L (137-145); Total Bilirubin 0.2 mg/dL (0.2-1.3); Total Protein 6.6 g/dL (6.3-8.2)
== END ==
LOC: LABPAT 10:38
PROVIDERS: ATTEND Orthopaedic Surgery Orthopaedic Surgery of the Spine
DX: Z01.818 Encounter for other preprocedural examination (principal); M48.061 Spinal stenosis, lumbar region without neurogenic claudication; Z51.81 Encounter for therapeutic drug level monitoring
CPT/HCPCS: 80053; 81001; 85027; 85610; 85730; 93005

== ENCOUNTER 2019-09-01 14:01 | Day surgery (SDC) | payer MEDICARE, OTHER ==
[2019-08-29 10:24] VITALS: BMI 27.8
[~2019-09-01 14:01] MED LIST changes: +DEXAMETHASONE SOD PHOSPHATE 10 MG/ML 1 ML VIAL IV ONE; +HYDROmorphone 0.5 MG/0.5 ML SYRINGE IVP PRN; -LACTATED RINGERS 1,000 ML IV SCH; +LIDOCAINE 1% (10MG/ML) FOR IV START INTRADERMA PRN; +POLYMYXIN B IRRIGATION ONE; +SODIUM CHLORIDE 0.9% IRRIGATION ONE
[2019-09-01] MEDS ORDERED: ONDANSETRON 4 MG/2 ML VIAL ONE (14:56)
[2019-09-01] MEDS: LACTATED RINGERS 1,000 ML IV SCH ×3 (15:09→21:57)
[2019-09-01 15:22] LABS: Appearance,Urine Clear (Clear); Bilirubin,Urine Negative (Negative); Blood,Urine Negative (Negative); Color,Urine Yellow; Glucose,Urine (UA) Negative (Negative); Ketones,Urine Negative (Negative); Leukocyte Esterase,Urine Negative (Negative); Nitrite,Urine Negative (Negative); Protein,Urine Negative (Negative); Specific Gravity,Urine 1.017 (1.001-1.035); Urobilinogen,Urine <2.0 mg/dL (<2.0)
[2019-09-01 15:32] LABS: Glucose,Whole Blood 122 mg/dL (75-99)
[2019-09-01] MEDS ORDERED: HYDROmorphone (PF) 1 MG/ML ONE (15:54)
[2019-09-01] MEDS ORDERED: MIDAZOLAM 2 MG/2 ML VIAL ONE (15:54)
[2019-09-01] MEDS ORDERED: SUCCINYLCHOLINE CHLORIDE 100 MG/5 ML SYR IV ONE (15:54)
[2019-09-01] MEDS ORDERED: LIDOCAINE 1% INJ 10MG/ML (20 ML MDV) ONE (15:54)
[2019-09-01] MEDS ORDERED: fentaNYL (PF) 50 MCG/ML 2 ML AMP ONE (15:54)
[2019-09-01] MEDS ORDERED: PROPOFOL 10 MG/ML 20 ML VIAL IV ONE (15:54)
[2019-09-01] MEDS ORDERED: GELATIN SPONGE,ABSORB (LARGE) 1 EACH SPONGE MISCELLANE ONE (16:28)
[2019-09-01] MEDS ORDERED: THROMBIN (BOVINE) 5,000 UNIT VIAL MISCELLANE ONE (16:28)
[2019-09-01] MEDS ORDERED: LACTATED RINGERS 1,000 ML IV ONE ×2 (17:07→20:30)
[2019-09-01] MEDS ORDERED: HYDROmorphone 0.5 MG/0.5 ML SYRINGE IVP PRN (17:48)
[2019-09-01] MEDS ORDERED: BENZOCAINE/MENTHOL LOZENG 1 EACH LOZENGE MUCOUS MEM PRN (17:48)
[2019-09-01] MEDS ORDERED: MAGNESIUM HYDROXIDE 2,400 MG/10 ML CUP PO PRN (17:48)
[2019-09-01] MEDS ORDERED: HYDROcodone/APAP 5-325MG 1 EACH TAB PO PRN (17:49)
[2019-09-01] MEDS ORDERED: ONDANSETRON 4 MG/2 ML VIAL IVP PRN (17:49)
[2019-09-01] MEDS ORDERED: ALBUTEROL INHALATION PRN (17:51)
[2019-09-01] MEDS ORDERED: BACLOFEN 10 MG TAB PO PRN (17:51)
[2019-09-01] MEDS ORDERED: hydrOXYzine HCL 25 MG TAB PO PRN (17:51)
[2019-09-01] MEDS ORDERED: ALBUTEROL NEBULIZED 2.5 MG/3 ML INHALATION PRN (17:51)
[2019-09-01] MEDS ORDERED: ONDANSETRON ODT 4 MG TAB PO PRN (17:51)
[2019-09-01] MEDS ORDERED: ALPRAZolam 0.25 MG TAB PO PRN (17:51)
--- NOTE | 2019-09-01 18:00 | P.OP ---
Date of Procedure: 09/01/19 Preoperative Diagnosis: Severe spinal stenosis L3 4 L4 5, neurogenic claudication of bilateral lower extremities, degenerative disc disease, facet arthrosis, lower extremity radiculopathy, low back pain Postoperative Diagnosis: Same Anesthesia: GETA Pathology: none sent Condition: stable Disposition: PACU Description of Procedure: BRIEF OPERATIVE NOTE Preoperative Diagnosis: Severe spinal stenosis L3 4 L4 5, degenerative disc disease L3 4 L4 5, neurogenic claudication, lower extremity radiculopathy, low back pain Postoperative Diagnosis: Same Procedure: Laminectomy and decompression with wide bilateral foraminotomies L3 4 and L4 5 Placement of the interlaminar stabilization device, Coflex device at L3 4 L4 5 Use of C-arm guidance Surgeon: Dr. Sanders Belt Cutter: Julio Franks is present throughout the entire the case persistence during positioning, dissection, exposure, visualization, and all crucial elements of the case as well as closure. Anesthesia: General anesthesia per Dr. Duckworth Estimated blood loss: approximately 50 mL Complications: None apparent Components implanted: Coflex interlaminar stabilization device L3 4 and L4-5, measuring 10 mm at L4 5 and 8 mm at L3 4, we also placed proximally 1 mL of Tisseel over the dura at L3 4 Disposition: To recovery room in good stable condition. OPERATIVE INDICATIONS The patient has been having issues in their lower back and lower extremities. she is having severe claudication symptoms due to her severe spinal stenosis at her lumbar spine particularly at L3 4 and L4 5. Her severe stenosis correlated well with her low back and lower extremity symptoms. She was having significant problems with getting around due to her neurogenic claudication lower extremity radiculopathy from her spine. The patient has multiple medical issues and has been evaluated by numerous providers in origin medically optimize her as best possible for surgical intervention. She has been cleared by cardiology as well as her primary care physician. We discussed various treatment options. The patient has been through conservative treatment. she is not having any prolonge d benefit despite aggressive conservative treatment We discussed various treatment options including surgery, ranging from laminectomy alone to the possibility of decompression with stabilization as well as the decompression and fusion. We felt that the patient could benefit with decompression and interlaminar stabilization,and the patient wishes to proceed with surgery We discussed the risk, patient's alternatives and benefits of surgery including but not limited to, risk of bleeding risk of infection, risk of need for further surgery, risk of decreased, loss of motion, loss of function, nerve damage, paralysis, heart attack, blindness and . OPERATIVE SUMMARY After discussing all the risks, patient alternatives and benefits at length, the patient elected to proceed with surgical intervention, signed informed consent, and presented for their procedure. The patient was seen and examined in the preoperative holding area and the surgical site was marked. The patient was given antibiotics and brought to the operating room. The patient was sedated and intubated by anesthesia in standard fashion. The patient was positioned on to the operating room table in a prone position on the appropriate frame which was well-padded and well molded. We were careful to pad any bony prominences and pressure points. We were careful to maintain the patient's cervical spine and good neutral alignment and position throughout. The patient was prepped and draped in a normal standard fashion. An appropriate timeout and keystone protocol performed. We were able to proceed with the surg patricio. Fluoroscopy was utilized to establish the appropriate level. The local wound area was infiltrated with local anesthetic. An incision was made at the midline longitudinally over the appropriate levels at L3 4 and L4 5. Dissection was taken down subcutaneously to the level of the fascia which was split midline. Dissection was taken over the lamina. Intraoperative fluoroscopy was taken which showed a marker at the appropriate level at L3 4 . With the appropriate level positively confirmed, we were able to proceed with laminectomy. The wound was copiously irrigated and suctioned dry as had been done periodically throughout the case. I performed a laminectomy with a combination of curettes and a high-speed bur and Kerrison rongeurs. A small medial facetectomy was performed again further access. A partial foraminotomy was also performed. Portions of the ligamentum flavum were taken down to expose the dura and traversing nerve root. There is severe thickening of the ligamentum flavum and significant facet hypertrophy with osteophytes causing severe central and bilateral foraminal stenosis. This was remedied with the decompression.There is no evidence of dural tear or leak. Good hemostasis maintained. The wound was copiously irrigated and suctioned dry. Good decompression was noted. This was done first at L34 and L4 5. At L3 4 there is a small abrasion on the d ura on the left side. There is no active leaking but I decided to place some Tisseel over the area to give some protection over the dura which was quite friable. I was then able to measure the appropriate size interlaminar stabilizing device. I was able get good alignment at the intralaminar spaces. I was able to trial with the appropriate size device and get gentle distraction at each level of L3 4 and L4 5. I chose he is appropriate size interlaminar stabilizer. The Coflex device was positioned and malleted in place and good alignment good position with good fixation at each level. We placed first at L4 5 and then at L3 4 The construct was checked and found to be stable. There is good decompression without any evidence of dural tear or leak. There is no evidence of fracture. We were able to proceed with closure. The fascia was closed for a watertight closure. The subcuticular tissue was closed with absorbable suture. The wound was cleaned and dried and dressed with the appropriate dressing. The drapes were broken down. The patient was gently rolled back onto their hospital bed being careful to maintain their cervical spine and good neutral alignment and position. They were woken up by anesthesia, extubated, and brought to the recovery room in good stable condition. The patient will be admitted to the hospital for observation and for appropriate postoperative care, medical management and monitoring. We will continue to follow them closely about the postoperative course.
--- NOTE | 2019-09-01 18:02 | FL ---
EXAMINATION TYPE: FL guidance operating room, XR lumbar spine 1V DATE OF EXAM: 09/01/2019 CLINICAL HISTORY: Low back pain. TECHNIQUE: Fluoroscopy. Intraoperative single view lumbar spine. COMPARISON: CT lumbar spine December 20, 2018. FINDINGS: Fluoroscopic guidance was provided during laminectomy decompression procedure performed by Dr. Sanders. A total of 4 seconds of fluoroscopic time was utilized during the procedure and single s pot intraoperative image is acquired. Single image acquired shows lumbar spine in lateral projection through the upper sacrum. IMPRESSION: As Above.
[2019-09-01] MEDS ORDERED: hydrALAZINE HCL 20 MG/ML 1 ML VIAL IVP ONE (19:20)
[2019-09-01] MEDS ORDERED: HYDROmorphone 0.5 MG/0.5 ML SYRINGE IVP ONE (19:25)
[2019-09-01] MEDS ORDERED: METOPROLOL TARTRATE 5 MG/5 ML VIAL IVP ONE (20:00)
[2019-09-01] MEDS ORDERED: HYDROmorphone 1 MG/ML 1 ML SYRINGE IVP ONE ×2 (20:10→20:20)
[2019-09-01] MEDS ORDERED: lamoTRIgine 100 MG TAB PO SCH (21:00)
[2019-09-01 21:50] LABS: Glucose,Whole Blood 100 mg/dL (75-99)
[2019-09-01] MEDS: AMOXIC-POT CLAV 875-125MG 1 EACH TAB PO SCH (21:51)
[2019-09-01] MEDS: FAMOTIDINE 20 MG TAB PO SCH (21:51)
[2019-09-01] MEDS: OXYBUTYNIN CHLORIDE 5 MG TAB PO SCH (21:52)
[2019-09-01] MEDS: SUCRALFATE 1 GM TAB PO SCH (21:52)
[2019-09-01] MEDS: GABAPENTIN 300 MG CAP PO SCH (21:52)
[2019-09-01] MEDS: SODIUM CHLORIDE 0.9% 1,000 ML IV SCH (21:56)
[2019-09-01 22:33] VITALS: RESP 18
[2019-09-02] MEDS: METOPROLOL TARTRATE 50 MG TAB PO SCH ×2 (00:25→08:44)
[2019-09-02] MEDS: HYDROcodone/APAP 5-325MG 1 EACH TAB PO PRN ×3 (00:34→11:08)
[2019-09-02 06:06] VITALS: BP 158/100; PULSE 60; TEMP 97.8
[2019-09-02] MEDS ORDERED: MIDODRINE 5 MG TAB PO SCH (07:30)
[2019-09-02 07:46] LABS: Glucose,Whole Blood 161 mg/dL (75-99)
[2019-09-02] MEDS: GABAPENTIN 300 MG CAP PO SCH (08:44)
[2019-09-02] MEDS: FAMOTIDINE 20 MG TAB PO SCH (08:44)
[2019-09-02] MEDS: SUCRALFATE 1 GM TAB PO SCH (08:44)
[2019-09-02] MEDS: AMOXIC-POT CLAV 875-125MG 1 EACH TAB PO SCH (08:44)
[2019-09-02] MEDS: SODIUM CHLORIDE 0.9% 1,000 ML IV SCH (08:46)
[2019-09-02] MEDS: OXYBUTYNIN CHLORIDE 5 MG TAB PO SCH (08:49)
[2019-09-02] MEDS ORDERED: CHOLECALCIFEROL 1,000 UNIT TAB PO SCH (09:00)
[2019-09-02] MEDS ORDERED: LISINOPRIL 10 MG TAB PO SCH (09:00)
[2019-09-02] MEDS ORDERED: CALCIUM MAGNESIUM PO SCH (09:00)
[2019-09-02] MEDS ORDERED: lamoTRIgine 100 MG TAB PO SCH (09:00)
[2019-09-02] MEDS ORDERED: ARIPiprazole 10 MG TAB PO SCH (09:00)
[2019-09-02] MEDS ORDERED: DULoxetine HCL 60 MG CAPSULE.DR PO SCH (09:00)
[2019-09-02] MEDS ORDERED: FERROUS SULFATE 325 MG TAB PO SCH (09:00)
[2019-09-02] MEDS ORDERED: CALCIUM CARBONATE 500 MG CHEWABLE PO SCH (09:00)
[2019-09-02] MEDS ORDERED: FLUDROCORTISONE 0.1 MG TAB PO SCH (09:00)
[2019-09-02] MEDS ORDERED: APIXABAN 5 MG TAB PO SCH (09:00)
--- NOTE | 2019-09-02 09:06 | P.DS ---
Providers Expected date of discharge: 09/02/19 Attending physician: Willy Sanders Consults: 09/01/19 17:55 Consult Physician Routine Consulting Provider: Dawit Canales Consult Reason/Comments: Medical management Do you want consulting provider notified?: Yes Primary care physician: Dawit Canales - Discharge Diagnosis(es) (1) Lumbar stenosis with neurogenic claudication Current Visit: Yes Status: Acute (2) Low back pain Current Visit: Yes Status: Acute (3) Radiculopathy with lower extremity symptoms Current Visit: Yes Status: Acute (4) Lumbar facet arthropathy Current Visit: Yes Status: Acute (5) Lumbar degenerative disc disease Current Visit: Yes Status: Acute (6) Heart disease Current Visit: Yes Status: Acute (7) Pacemaker Current Visit: Yes Status: Acute (8) Hypertension Current Visit: Yes Status: Acute (9) Hyperlipemia Current Visit: Yes Status: Acute (10) Diabetes type I Current Visit: Yes Status: Acute (11) Neuropathy Current Visit: Yes Status: Acute Hospital Course: This is a pleasant 59-year-old female who presented with lumbar spinal canal stenosis, low back pain, neurogenic claudication, facet arthrosis, and lower extremity radiculopathy who failed outpatient conservative therapy. She was admitted for an L3-4 and L4-5 laminectomy decompression with placement of intralaminar stabilization device. The patient tolerated the procedure well and did well postoperatively. She has some pain at the surgical site the states her pain has been adequately controlled with Kelley. She does have multiple drug ALLERGIES but states she's been noticing Kelley without difficulty. She is ready for discharge home today. Condition on day of discharge stable. Patient will be discharged home. Patient was cleared preoperatively for surgery by Dr. Graff. Patient currently denies any nausea, vomiting, fever, or chills. Patient is eating and voiding freely without difficulty. Patient may shower Optifoam dressing intact. Patient may remove Optifoam dressing in 3 days and shower without a dressing at that time. Patient should refrain from driving until at least after their first follow-up appointment in the office. Patient should avoid excessive bending, lifting, and twisting; no lifting greater than 10 pounds. MAPS has been reviewed today, 09/02/2019, with an Overall Overdose Risk Score of 480. An "Opiod Start Talking" Form has been signed and placed in the patient's chart. A prescription has been written for Kelley 5 mg/325 mg 1 tab every 6 hours as needed for pain, dispensed #28. Patient should avoid anti-inflammatory medications over the next 6 weeks postoperatively. Patient may resume other prescription prescribed home medications. We did discuss patient has had difficulty with hypertension following surgical intervention. She'll be cleared for discharge following clearance by medicine. She states she does have difficulty with blood pressure control and outpatient setting. Patient is also not had recent surgical intervention at her left second toe. She will follow with her surgeon the outpatient setting for treatment evaluation as scheduled. Patient's past medical history includes heart disease, hypertension, hyperlipidemia, diabetes type 1, neuropathy, and pacemaker placement. Physical Exam on day of discharge: Patient is awake, alert, and oriented 3 Vital signs stable Good chest excursion with deep inspiration and expiration Abdomen soft nontender No signs or symptoms of DVT; no calf pain Extensor hallucis longus, plantarflexion, and dorsiflexion positive sustained bilateral lower extremities Incision is clean, dry, and intact; no erythema, purulence, or signs of infection Tegaderm dressing and non-stick Telfa intact Dressing intact over the left second toe following recent surgical intervention Procedures: L3-4 and L4-5 laminectomy decompression with placement of intralaminar stabilization device Patient Condition at Discharge: Stable Plan - Discharge Summary Discharge Rx Participant: Yes New Discharge Prescriptions: New HYDROcodone/APAP 5-325MG [Kelley 5] 1 each PO Q6HR PRN #28 tab PRN Reason: Pain No Action Albuterol Inhaler (Mhu) [Ventolin Hfa Inhaler (Mhu)] 1 - 2 puff INHALATION Q6HR PRN PRN Reason: Shortness Of Breath Oxybutynin Chloride [Ditropan] 5 mg PO BID Fludrocortisone [Florinef] 0.1 mg PO QAM Apixaban [Eliquis] 5 mg PO BID Midodrine HCl [ProAmatine] 2.5 mg PO TID Metoprolol Tartrate [Lopressor] 50 mg PO BID lamoTRIgine [LaMICtal] 150 mg PO QAM DULoxetine HCL [Cymbalta] 60 mg PO QAM Exenatide Microspheres [Bydureon Pen] 2 mg SQ FR Gabapentin [Neurontin] 300 mg PO BID Sucralfate [Carafate] 1 gm PO BID lamoTRIgine [LaMICtal Odt] 200 mg PO HS Omeprazole 40 mg PO HS hydrOXYzine PAMOATE 50 mg PO TID PRN PRN Reason: Itching Ranitidine HCl [Zantac] 150 mg PO BID ARIPiprazole [Abilify] 10 mg PO QAM Baclofen 10 mg PO Q8H PRN PRN Reason: MUSCLE SPASMS Lisinopril [Zestril] 10 mg PO QAM Stool Softner 100 Mg 1 tab PO BID PRN PRN Reason: Constipation Albuterol Sulfate [Albuterol Sulfate Hfa] 2 puff PO Q6H PRN PRN Reason: Shortness Of Breath ALPRAZolam [Xanax] 0.25 mg PO BID PRN PRN Reason: Anxiety Amoxic-Pot Clav 875-125Mg [Augmentin 875-125] 1 tab PO BID Ondansetron Odt [Zofran Odt] 4 mg PO Q6HR PRN PRN Reason: Nausea Calcium-Magnesium (Unknown Dos 1 tab PO DAILY Vitamin C Packet 1 applic PO DAILY Ferrous Sulfate [Feosol] 650 mg PO DAILY Multivitamin [Multivitamins Adult Gummies] 2 each PO DAILY Ubidecarenone [Co Q-10] 200 mg PO DAILY Turmeric Root Extract [Turmeric] 200 mg PO DAILY Cholecalciferol [Vitamin D3 (25 Mcg = 1000 Iu)] 10,000 unit PO DAILY Calcium Carbonate [Calcium] 600 mg PO DAILY Spirulina 400 Mg 400 mg PO DAILY Citrucel Tabs 100 mg PO DAILY Medical Marijuana 1 dose INHALATION DIRECTED PRN PRN Reason: Pain Discharge Medication List Albuterol Inhaler (Mhu) [Ventolin Hfa Inhaler (Mhu)] 1 - 2 puff INHALATION Q6HR PRN 09/29/15 [History] Fludrocortisone [Florinef] 0.1 mg PO QAM 09/29/15 [History] Oxybutynin Chloride [Ditropan] 5 mg PO BID 09/29/15 [History] Apixaban [Eliquis] 5 mg PO BID 07/06/16 [History] Metoprolol Tartrate [Lopressor] 50 mg PO BID 02/20/17 [History] Midodrine HCl [ProAmatine] 2.5 mg PO TID 02/20/17 [History] lamoTRIgine [LaMICtal] 150 mg PO QAM 02/20/17 [History] DULoxetine HCL [Cymbalta] 60 mg PO QAM 07/30/17 [History] Exenatide Microspheres [Bydureon Pen] 2 mg SQ FR 12/11/18 [History] Gabapentin [Neurontin] 300 mg PO BID 12/11/18 [History] Sucralfate [Carafate] 1 gm PO BID 12/11/18 [History] lamoTRIgine [LaMICtal Odt] 200 mg PO HS 12/11/18 [History] Omeprazole 40 mg PO HS 12/12/18 [History] ARIPiprazole [Abilify] 10 mg PO QAM 05/05/19 [History] Baclofen 10 mg PO Q8H PRN 05/05/19 [History] Lisinopril [Zestril] 10 mg PO QAM 05/05/19 [History] Ranitidine HCl [Zantac] 150 mg PO BID 05/05/19 [History] hydrOXYzine PAMOATE 50 mg PO TID PRN 05/05/19 [History] ALPRAZolam [Xanax] 0.25 mg PO BID PRN 08/29/19 [History] Albuterol Sulfate [Albuterol Sulfate Hfa] 2 puff PO Q6H PRN 08/29/19 [History] Amoxic-Pot Clav 875-125Mg [Augmentin 875-125] 1 tab PO BID 08/29/19 [History] Calcium Carbonate [Calcium] 600 mg PO DAILY 08/29/19 [History] Calcium-Magnesium (Unknown Dos 1 tab PO DAILY 08/29/19 [History] Cholecalciferol [Vitamin D3 (25 Mcg = 1000 Iu)] 10,000 unit PO DAILY 08/29/19 [History] Citrucel Tabs 100 mg PO DAILY 08/29/19 [History] Ferrous Sulfate [Feosol] 650 mg PO DAILY 08/29/19 [History] Medical Marijuana 1 dose INHALATION DIRECTED PRN 08/29/19 [History] Multivitamin [Multivitamins Adult Gummies] 2 each PO DAILY 08/29/19 [History] Ondansetron Odt [Zofran Odt] 4 mg PO Q6HR PRN 08/29/19 [History] Spirulina 400 Mg 400 mg PO DAILY 08/29/19 [History] Stool Softner 100 Mg 1 tab PO BID PRN 08/29/19 [History] Turmeric Root Extract [Turmeric] 200 mg PO DAILY 08/29/19 [History] Ubidecarenone [Co Q-10] 200 mg PO DAILY 08/29/19 [History] Vitamin C Packet 1 applic PO DAILY 08/29/19 [History] HYDROcodone/APAP 5-325MG [Kelley 5] 1 each PO Q6HR PRN #28 tab 09/02/19 [Rx] Follow up Appointment(s)/Referral(s): Julio Lincoln, DARIN [PHYSICIAN [employer]] - 2 Weeks (Patient may follow-up with Julio Lincoln PA-C or Dr. Sanjeev Sanders at [facility] in 2-3 weeks following discharge. ) Activity/Diet/Wound Care/Special Instructions: 1. Patient may shower with Optifoam dressing intact. 2. Patient may remove Optifoam dressing in 3 days and shower without a dressing at that time. 3. Patient should refrain from driving until at least after their first follow- up appointment in the office. 4. Patient should avoid excessive bending, twisting, and lifting; no lifting greater than 10 pounds 5. Take medications as prescribed 6. Do not soak in tub Discharge Disposition: HOME SELF-CARE
[2019-09-05] MEDS ORDERED: NON FORMULARY DRUG (Exenatide Microspheres [Bydureon Pen] 2 MG) SQ SCH (09:00)
== END 2019-09-02 11:44 | disposition home or self-care (01) ==
LOC: OR 14:01 → 5NMEDONC 17:51 → OR 09-02 11:44
PROVIDERS: ATTEND Orthopaedic Surgery Orthopaedic Surgery of the Spine
DX: M48.062 Spinal stenosis, lumbar region with neurogenic claudication (principal); M51.16 Intervertebral disc disorders with radiculopathy, lumbar region; M47.26 Other spondylosis with radiculopathy, lumbar region; I11.9 Hypertensive heart disease without heart failure; G47.419 Narcolepsy without cataplexy; M17.0 Bilateral primary osteoarthritis of knee; M25.78 Osteophyte, vertebrae; E66.9 Obesity, unspecified; I73.9 Peripheral vascular disease, unspecified; J44.9 Chronic obstructive pulmonary disease, unspecified; F32.9 Major depressive disorder, single episode, unspecified; E10.9 Type 1 diabetes mellitus without complications; H91.90 Unspecified hearing loss, unspecified ear; E78.5 Hyperlipidemia, unspecified; F17.210 Nicotine dependence, cigarettes, uncomplicated; G47.33 Obstructive sleep apnea (adult) (pediatric); K21.9 Gastro-esophageal reflux disease without esophagitis; Z79.01 Long term (current) use of anticoagulants; Z79.899 Other long term (current) drug therapy; Z95.0 Presence of cardiac pacemaker; Z97.3 Presence of spectacles and contact lenses; Z79.4 Long term (current) use of insulin; Z79.02 Long term (current) use of antithrombotics/antiplatelets; Z85.43 Personal history of malignant neoplasm of ovary; Z98.84 Bariatric surgery status; Z90.79 Acquired absence of other genital organ(s); Z98.49 Cataract extraction status, unspecified eye; Z98.890 Other specified postprocedural states; Z88.2 Allergy status to sulfonamides; Z88.5 Allergy status to narcotic agent; Z91.048 Other nonmedicinal substance allergy status; Z88.6 Allergy status to analgesic agent; Z88.8 Allergy status to other drugs, medicaments and biological substances; Z82.49 Family history of ischemic heart disease and other diseases of the circulatory system; Z68.29 Body mass index [BMI] 29.0-29.9, adult
CPT/HCPCS: 97162; 86900; 86901; 86850; 81003; 72020; 22867; 22868; C1713; C1762; J2250; J0360; J0690 ×2; J2405; J2001; J3010; J1170 ×2; J0330; J2704